=== PATIENT | male | born 1975 | race Caucasian/White ===

== ENCOUNTER 2016-08-17 08:16 | Emergency (ER) | payer OTHER ==
[2016-08-17] MEDS ORDERED: ASPIRIN CHEW 81 MG TABLET PO STA (08:46)
[2016-08-17] MEDS ORDERED: ASPIRIN CHEW 81 MG TABLET ONE (08:52)
[2016-08-17] MEDS ORDERED: diazePAM 5 MG TABLET PO STA (09:53)
[2016-08-17] MEDS ORDERED: diazePAM 5 MG TABLET PO ONE (09:53)
[2016-08-17] MEDS ORDERED: oxyCOD/ACETAMIN 5 MG/325 MG TABLET PO STA (11:11)
[2016-08-17] MEDS ORDERED: oxyCOD/ACETAMIN 5 MG/325 MG TABLET PO ONE (11:14)
== END 2016-08-17 13:26 | disposition home or self-care (01) ==
DX: F41.9 Anxiety disorder, unspecified (principal); R07.89 Other chest pain; R00.0 Tachycardia, unspecified; F43.10 Post-traumatic stress disorder, unspecified; Z87.891 Personal history of nicotine dependence
CPT/HCPCS: 36415; 71020; 80053; 83690; 83880; 84484; 85025; 85379; 93005; 93010; 99284; A9270

== ENCOUNTER 2016-10-04 09:35 | Emergency (ER) | payer BC, OTHER ==
[2016-10-04] MEDS ORDERED: CYCLOBENZAPRINE 10 MG TABLET PO STA (10:18)
[2016-10-04] MEDS ORDERED: LIDOCAINE PATCH 5% TOP STA (10:18)
[2016-10-04] MEDS ORDERED: KETOROLAC 60 MG/2 ML VIAL IM STA (10:18)
[2016-10-04] MEDS ORDERED: oxyCOD/ACETAMIN 5 MG/325 MG TABLET PO STA (10:18)
[2016-10-04] MEDS ORDERED: oxyCOD/ACETAMIN 5 MG/325 MG TABLET PO ONE (10:24)
[2016-10-04] MEDS ORDERED: KETOROLAC 60 MG/2 ML VIAL ONE (10:24)
[2016-10-04] MEDS ORDERED: CYCLOBENZAPRINE 10 MG TABLET PO ONE (10:24)
[2016-10-04] MEDS ORDERED: LIDOCAINE PATCH 5% TOP ONE (10:24)
== END 2016-10-04 11:45 | disposition home or self-care (01) ==
DX: M54.5 Low back pain (principal); K21.9 Gastro-esophageal reflux disease without esophagitis; Z87.891 Personal history of nicotine dependence
CPT/HCPCS: 96372; 99283; A9270

== ENCOUNTER 2017-01-25 15:40 | Outpatient (CLI) | payer BC | END 2017-01-25 15:41 | disposition critical access hospital (66) | LOC: EMS 15:40 | PROVIDERS: ATTEND Surgery | DX: R07.9 Chest pain, unspecified (principal); R11.2 Nausea with vomiting, unspecified; R19.7 Diarrhea, unspecified | CPT/HCPCS: A0425; A0427 ==

== ENCOUNTER 2017-01-25 15:56 | Emergency (ER) | payer BC ==
[2017-01-25] MEDS ORDERED: ONDANSETRON 4 MG/2 ML VIAL IVP STA (16:12)
[2017-01-25] MEDS ORDERED: HYDROmorphone 1 MG/ML SYRINGE IVP STA ×2 (16:12→19:06)
[2017-01-25] MEDS ORDERED: SODIUM CHLORIDE 0.9% 1,000 ML IV ONE ×2 (16:12→17:40)
[2017-01-25] MEDS ORDERED: ONDANSETRON 4 MG/2 ML VIAL ONE (16:21)
[2017-01-25] MEDS ORDERED: HYDROmorphone 1 MG/ML SYRINGE ONE ×2 (16:21→19:13)
--- NOTE | 2017-01-25 16:23 | ED Physician Documentation ---
History of Present Illness - Stated complaint Stated Complaint: CP - Chief complaint Chief Complaint: Cardiac - History obtained from History obtained from: Patient - Additonal information Additional information: Patient is a 41-year-old man who for the most part is pretty healthy. He presents with a complaint of nausea vomiting and diarrhea which started on Saturday. Initially he had a lot of nausea and vomiting but more lately is been mostly diarrhea. Most of his symptoms started to resolve however this morning when he stood up he felt lightheaded and then developed the palpitations. He felt his heart was beating very hard and became concerned. He was tried hydrated at home but had a recurrence of the dizziness and palpitations this evening and decided to come into the hospital for evaluation. This patient has chronic low back pain is on oxycodone every day. He has been able to take some of his medications but may have missed a few doses because of the nausea and vomiting initially. He has not had any abdominal pain however has had generalized cramping. There is no complaints of fever. There is no shortness of breath. He denies any headache or ear nose and throat symptoms. There is no recent antibiotic use or contact with healthcare system recently. Review of systems: For pertinent positive and negatives in the review of systems please see the history of present illness, otherwise all other systems have been reviewed and are negative. Dragon disclaimer: Parts of this medical record were created using voice recognition technology. Because of the inherent limitations of this system, occasional same sounding word substitutions do occur and persist despite proofreading. Please read the document for context. Review of Systems Ten Systems: 10 systems reviewed and negative Constitutional: denies: Fever, Chills Respiratory: denies: Dyspnea, Cough GI: reports: Nausea, Vomiting, Diarrhea. denies: Abdominal Pain, Abdominal Swelling, Constipation, Hematemesis : denies: Dysuria Musculoskeletal: denies: Neck pain, Back pain, Extremity pain Neurologic: reports: Generalized weakness. denies: Focal weakness, Numbness, Near syncope, Syncope, Seizure, Confused, Altered mental status PD PAST MEDICAL HISTORY - Past Medical History Cardiovascular: None Respiratory: None Neuro: None Endocrine/Autoimmune: None GI: GERD : None HEENT: None Psych: Depression, Anxiety, Post traumatic stress disorder Musculoskeletal: None, Chronic back pain Derm: None - Past Surgical History Past Surgical History: Yes Ortho: Other - Present Medications Home Medications: Ambulatory Orders Medication Instructions Recorded Confirmed Omeprazole [PriLOSEC] 20 mg PO DAILY 01/25/17 01/25/17 oxyCODONE/ACET 5/325 [Percocet 5 1 tab PO QID PRN 01/25/17 01/25/17 mg/325 mg] - Allergies Allergies/Adverse Reactions: Allergies Allergy/AdvReac Type Severity Reaction Status Date / Time No Known Drug Allergies Allergy Unverified 10/04/16 09:41 - Social History Does the pt smoke?: Yes Smoking Status: Former smoker Does the pt drink ETOH?: No Does the pt have substance abuse?: No - Immunizations Immunizations are current?: Yes - POLST Patient has POLST: No PD ED PE NORMAL - Vitals Vital signs reviewed: Yes - General General: Alert and oriented X 3, No acute distress, Other (This male lying in the bed. He is mildly tachycardic. He appears mildly anxious as well. He does not appear sick or in any type of distress) - Cardiac Cardiac: No murmur, No gallop, No rub, Other (Mild tachycardia) - Respiratory Respiratory: No respiratory distress, Clear bilaterally - Abdomen Abdomen: Normal bowel sounds, Non tender, Non distended - Derm Derm: Normal color - Extremities Extremities: No deformity, No tenderness to palpate, Normal ROM s pain, No edema - Neuro Neuro: Alert and oriented X 3, No motor deficit - Psych Psych: Normal mood, Normal affect Results - Vitals Vitals: Vital Signs - 24 hr 01/25/17 01/25/17 01/25/17 15:57 17:11 18:18 Temperature 37.0 C Heart Rate 118 H 98 105 H Respiratory 20 18 16 Rate Blood Pressure 164/61 H 139/98 H 124/75 O2 Saturation 99 96 96 01/25/17 19:17 Temperature Heart Rate 96 Respiratory 20 Rate Blood Pressure 137/82 H O2 Saturation 99 Oxygen O2 Source Room air - Labs Labs: Laboratory Tests 01/25/17 01/25/17 01/25/17 16:25 16:25 16:25 WBC 15.2 H RBC 5.34 Hgb 15.1 Hct 44.6 MCV 83.6 MCH 28.2 MCHC 33.8 RDW 13.6 Plt Count 313 MPV 7.9 Neut # 10.9 H Lymph # 2.9 [place] # 1.3 H Eos # 0.1 Baso # 0.1 Absolute Nucleated RBC 0.02 Nucleated RBCs 0.1 Sodium 132 L Potassium 3.7 Chloride 97 L Carbon Dioxide 20 L Anion Gap 15.0 H BUN 10 Creatinine 1.0 Estimated GFR (MDRD) 83 L Glucose 105 H Calcium 8.0 L Total Bilirubin 0.8 AST 36 ALT 41 Alkaline Phosphatase 54 Troponin I < 0.04 Total Protein 6.9 Albumin 4.1 Globulin 2.8 Albumin/Globulin Ratio 1.5 Lipase < 10 L Urine Color Urine Clarity Urine pH Ur Specific [place] Urine Protein Urine Glucose (UA) Urine Ketones Urine Occult Blood Urine Nitrite Urine Bilirubin Urine Urobilinogen Ur Leukocyte Esterase Ur Microscopic Review Urine Culture Comments 01/25/17 17:02 WBC RBC Hgb Hct MCV MCH MCHC RDW Plt Count MPV Neut # Lymph # [place] # Eos # Baso # Absolute Nucleated RBC Nucleated RBCs Sodium Potassium Chloride Carbon Dioxide Anion Gap BUN Creatinine Estimated GFR (MDRD) Glucose Calcium Total Bilirubin AST ALT Alkaline Phosphatase Troponin I Total Protein Albumin Globulin Albumin/Globulin Ratio Lipase Urine Color YELLOW Urine Clarity CLEAR Urine pH 5.5 Ur Specific [place] >=1.030 H Urine Protein NEGATIVE Urine Glucose (UA) NEGATIVE Urine Ketones NEGATIVE Urine Occult Blood NEGATIVE Urine Nitrite NEGATIVE Urine Bilirubin NEGATIVE Urine Urobilinogen 0.2 (NORMAL) Ur Leukocyte Esterase NEGATIVE Ur Microscopic Review NOT INDICATED Urine Culture Comments NOT INDICATED PD MEDICAL DECISION MAKING - ED course Complexity details: reviewed old records, reviewed results, re-evaluated patient , considered differential, d/w patient ED course: Patient is a 41-year-old man with history of chronic low back pain on oxycodone who presents with nausea vomiting diarrhea for couple days culminating with the onset of positional or orthostatic tachycardia and dizziness today. On initial presentation he was mildly tachycardic. He looked clinically dry. The history suggests dehydration as well. We did perform an EKG. This EKG demonstrates sinus tachycardia at 118 bpm the NE, QRS and QT intervals are within normal limits. Isolated T inversion is seen in lead III which is allowed. There is no ST segment elevation, depression present. The patient was given 2 L of normal saline here and there is been interval resolution of his tachycardia. Blood work on this patient demonstrates a white count of 15,000 and urine suggests dehydration with specific gravity greater than 1.030. The patient is doing well clinically suspect his symptoms are probably related to a viral gastroenteritis possibly superimposed on mild opiate withdrawal given his chronic opiate use and inability to take his medications during the nausea and vomiting episode. At this point in time he looks much better despite the high white count I do not suspect any type of bacterial infection. His abdomen is completely soft and nontender. At this point I think he can be safely discharged home. Disposition: To home Clinical impression: 1. Nausea vomiting diarrhea-suspect viral cause 2. Dehydration with high specific gravity of urine 3. Palpitations and tachycardia secondary to volume depletion Departure - Departure Disposition: 01 Home, Self Care Clinical Impression: Gastroenteritis and colitis, viral Condition: Good Instructions: ED Dehydration, ED Gastroenteritis Non Infec Follow-Up: your,physician [Other]
[2017-01-25 16:49] LABS: ALBUMIN/GLOBULIN RATIO 1.5 (1.0-2.2); BILIRUBIN,TOTAL 0.8 mg/dL (0.2-1.0); BUN - BLOOD UREA NITROGEN 10 mg/dL (6-20); CARBON DIOXIDE - CO2 20 mmol/L (21-32); CHLORIDE 97 mmol/L (101-111); GFR - MDRD 83 (>89); GLUCOSE 105 mg/dL (70-100); POTASSIUM 3.7 mmol/L (3.5-5.0); SODIUM 132 mmol/L (135-145); TOTAL PROTEIN 6.9 g/dL (6.7-8.2)
[2017-01-25 16:57] LABS: BASOPHILS # (AUTO) 0.1 10^3/uL (0.0-0.1); BASOPHILS % (AUTO) 0.5 %; EOSINOPHILS # (AUTO) 0.1 10^3/uL (0.0-0.7); EOSINOPHILS % (AUTO) 0.4 %; HCT - HEMATOCRIT 44.6 % (42.0-52.0); HGB - HEMOGLOBIN 15.1 g/dL (14.0-18.0); LYMPHOCYTES # (AUTO) 2.9 10^3/uL (1.5-3.5); MEAN CORPUSCULAR HEMOGLOBIN 28.2 pg (27.0-31.0); MEAN CORPUSCULAR HGB CONC 33.8 g/dL (32.0-36.0); MEAN CORPUSCULAR VOLUME 83.6 fL (80.0-94.0); MEAN PLATELET VOLUME 7.9 fL (7.4-11.4); MONOCYTES # (AUTO) 1.3 10^3/uL (0.0-1.0); MONOCYTES % (AUTO) 8.3 %; NEUTROPHILS # (AUTO) 10.9 10^3/uL (1.5-6.6); NEUTROPHILS % (AUTO) 71.8 %; NUCLEATED RED BLOOD CELLS AUTO 0.1 /100WBC; RED BLOOD COUNT 5.34 10^6/uL (4.70-6.10); RED CELL DISTRIBUTION WIDTH 13.6 % (12.0-15.0); UNCORRECTED WHITE BLOOD COUNT 15.2 x10^3/uL; WHITE BLOOD COUNT 15.2 x10^3/uL (4.8-10.8)
[2017-01-25 16:59] LABS: LIPASE < 10 U/L (22-51)
[2017-01-25 17:27] LABS: BILIRUBIN,URINE NEGATIVE (NEGATIVE); PH,URINE 5.5 PH (5.0-7.5)
[2017-01-25 17:29] LABS: UA CHARGE (STRIP ONLY) YES; UR CULTURE IF IND NOT INDICATED
[2017-01-25] MEDS ORDERED: LORazepam 2 MG/ML SYRINGE IVP STA (17:41)
[2017-01-25] MEDS ORDERED: LORazepam 2 MG/ML SYRINGE ONE (17:45)
[2017-01-25 19:28] VITALS: BP 135/82
== END 2017-01-25 19:59 | disposition home or self-care (01) ==
LOC: EDUNIT# → ED 15:56
DX: R11.2 Nausea with vomiting, unspecified (principal); R19.7 Diarrhea, unspecified; E86.0 Dehydration; R00.2 Palpitations; R00.0 Tachycardia, unspecified; G89.29 Other chronic pain; Z87.891 Personal history of nicotine dependence
CPT/HCPCS: 36415; 80053; 81003; 83690; 84484; 85025; 93005; 96361; 96374; 96375; 96376; 99284; 99285; J1170; J2060; 81001; 87086

== ENCOUNTER 2017-01-26 15:12 | Emergency (ER) | payer BC ==
[2017-01-26] MEDS ORDERED: SODIUM CHLORIDE 0.9% 1,000 ML IV ONE (15:30)
[2017-01-26] MEDS ORDERED: PROCHLORPERAZINE INJ 10 MG in SODIUM CHLORIDE 0.9% 50 ML IV ONE (15:50)
[2017-01-26 15:55] LABS: BASOPHILS # (AUTO) 0.1 10^3/uL (0.0-0.1); BASOPHILS % (AUTO) 0.9 %; EOSINOPHILS # (AUTO) 0.1 10^3/uL (0.0-0.7); EOSINOPHILS % (AUTO) 1.3 %; HCT - HEMATOCRIT 43.9 % (42.0-52.0); HGB - HEMOGLOBIN 14.8 g/dL (14.0-18.0); LYMPHOCYTES # (AUTO) 2.2 10^3/uL (1.5-3.5); LYMPHOCYTES % (AUTO) 25.5 %; MEAN CORPUSCULAR HEMOGLOBIN 28.2 pg (27.0-31.0); MEAN CORPUSCULAR HGB CONC 33.8 g/dL (32.0-36.0); MEAN CORPUSCULAR VOLUME 83.3 fL (80.0-94.0); MEAN PLATELET VOLUME 7.6 fL (7.4-11.4); MONOCYTES # (AUTO) 0.7 10^3/uL (0.0-1.0); MONOCYTES % (AUTO) 7.5 %; NEUTROPHILS # (AUTO) 5.7 10^3/uL (1.5-6.6); NEUTROPHILS % (AUTO) 64.8 %; NUCLEATED RED BLOOD CELLS AUTO 0.1 /100WBC; RED BLOOD COUNT 5.27 10^6/uL (4.70-6.10); RED CELL DISTRIBUTION WIDTH 13.7 % (12.0-15.0); UNCORRECTED WHITE BLOOD COUNT 8.8 x10^3/uL; WHITE BLOOD COUNT 8.8 x10^3/uL (4.8-10.8)
[2017-01-26] MEDS ORDERED: PROCHLORPERAZINE 10 MG/2 ML VIAL ONE (16:01)
[2017-01-26 16:09] LABS: ALBUMIN/GLOBULIN RATIO 1.2 (1.0-2.2); BILIRUBIN,TOTAL 0.9 mg/dL (0.2-1.0); BUN - BLOOD UREA NITROGEN 7 mg/dL (6-20); CARBON DIOXIDE - CO2 24 mmol/L (21-32); CHLORIDE 99 mmol/L (101-111); CREATININE 0.8 mg/dL (0.6-1.2); GFR - MDRD 107 (>89); GLUCOSE 119 mg/dL (70-100); LIPASE 13 U/L (22-51); POTASSIUM 3.9 mmol/L (3.5-5.0); SODIUM 134 mmol/L (135-145); TOTAL PROTEIN 7.6 g/dL (6.7-8.2)
[2017-01-26] MEDS ORDERED: FAMOTIDINE 20 MG in SODIUM CHLORIDE 0.9% 50 ML IV STA (16:45)
[2017-01-26] MEDS ORDERED: HYDROmorphone 1 MG/ML SYRINGE IVP STA (16:46)
[2017-01-26] MEDS ORDERED: FAMOTIDINE 20 MG/50 ML 50 ML IV STA (16:48)
[2017-01-26] MEDS ORDERED: FAMOTIDINE 20 MG/50 ML 50 ML IV ONE (17:02)
[2017-01-26] MEDS ORDERED: HYDROmorphone 1 MG/ML SYRINGE ONE (17:02)
[2017-01-26 17:07] LABS: BILIRUBIN,URINE NEGATIVE (NEGATIVE)
[2017-01-26 17:08] LABS: UA CHARGE (STRIP ONLY) YES; UR CULTURE IF IND NOT INDICATED
[2017-01-26 17:46] VITALS: BP 113/85
--- NOTE | 2017-01-26 18:03 | ED Physician Documentation ---
PD HPI ABD PAIN - Stated complaint Stated Complaint: VOMITING - Chief complaint Chief Complaint: Abd Pain - Treatment prior to arrival Treatment prior to arrival: Patient is a 41-year-old male with history of alcoholism in remission, peptic ulcer disease, and chronic low back pain on chronic opiate therapy. He presents with a complaint of nausea and vomiting diarrhea for the past couple of days. The patient was brought in by EMS was noted to be in mild distress with tachycardia and initial presentation. Patient had a workup yesterday that is essentially unremarkable. He improved with a couple liters of normal saline is no longer having nausea vomiting or diarrhea. It a white count of 15,000 but there is no other evidence suggesting infectious or bacterial enteritis. He ultimately went home and did well until last night when he developed more nausea vomiting and diarrhea. He thinks the nausea vomiting is getting better but the diarrhea is continuing. He denies any fever and is no significant or localized abdominal pain. Review of systems: For pertinent positive and negatives in the review of systems please see the history of present illness, otherwise all other systems have been reviewed and are negative. Dragbrendan disclaimer: Parts of this medical record were created using voice recognition technology. Because of the inherent limitations of this system, occasional same sounding word substitutions do occur and persist despite proofreading. Please read the document for context. Review of Systems Constitutional: denies: Fever GI: reports: Abdominal Pain, Nausea, Vomiting, Diarrhea. denies: Abdominal Swelling, Constipation, Hematemesis, Bloody / black stool : denies: Dysuria PD PAST MEDICAL HISTORY - Past Medical History Cardiovascular: None Respiratory: None Neuro: None Endocrine/Autoimmune: None GI: GERD : None HEENT: None Psych: Depression, Anxiety, Post traumatic stress disorder Musculoskeletal: None, Chronic back pain Derm: None - Past Surgical History Past Surgical History: Yes Ortho: Other - Present Medications Home Medications: Ambulatory Orders Medication Instructions Recorded Confirmed Omeprazole [PriLOSEC] 20 mg PO DAILY 01/25/17 01/26/17 oxyCODONE/ACET 5/325 [Percocet 5 1 tab PO QID PRN 01/25/17 01/26/17 mg/325 mg] Promethazine Supp [Phenergan Supp] 25 mg VA TID PRN #12 supp 01/26/17 Sucralfate [Carafate] 1 gm PO TID #21 ml 01/26/17 - Allergies Allergies/Adverse Reactions: Allergies Allergy/AdvReac Type Severity Reaction Status Date / Time No Known Drug Allergies Allergy Verified 01/26/17 15:21 - Social History Does the pt smoke?: Yes Smoking Status: Former smoker Does the pt drink ETOH?: No Does the pt have substance abuse?: No - Immunizations Immunizations are current?: Yes - POLST Patient has POLST: No PD ED PE NORMAL - General General: Alert and oriented X 3, No acute distress, Well developed/nourished - HEENT HEENT: Atraumatic, PERRL - Neck Neck: No bony TTP, No adenopathy - Cardiac Cardiac: RRR - Respiratory Respiratory: No respiratory distress - Abdomen Abdomen: Normal bowel sounds, No organomegaly, Other - Derm Derm: Normal color, Warm and dry - Extremities Extremities: No deformity, No tenderness to palpate - Neuro Neuro: Alert and oriented X 3 (The most part soft nontender abdomen. Bowel tones normoactive. No evidence of abdominal wall hernias) Results - Vitals Vitals: Vital Signs - 24 hr 01/26/17 01/26/17 15:16 17:45 Temperature 36.6 C Heart Rate 120 H 95 Respiratory 18 20 Rate Blood Pressure 183/153 H 113/85 H O2 Saturation 98 97 Oxygen O2 Source Room air - Labs Labs: Laboratory Tests 01/26/17 01/26/17 01/26/17 15:48 15:48 15:48 WBC 8.8 RBC 5.27 Hgb 14.8 Hct 43.9 MCV 83.3 MCH 28.2 MCHC 33.8 RDW 13.7 Plt Count 281 MPV 7.6 Neut # 5.7 Lymph # 2.2 [place] # 0.7 Eos # 0.1 Baso # 0.1 Absolute Nucleated RBC 0.00 Nucleated RBCs 0.1 Sodium 134 L Potassium 3.9 Chloride 99 L Carbon Dioxide 24 Anion Gap 11.0 BUN 7 Creatinine 0.8 Estimated GFR (MDRD) 107 Glucose 119 H Calcium 9.0 Total Bilirubin 0.9 AST 30 ALT 39 Alkaline Phosphatase 70 Troponin I < 0.04 Total Protein 7.6 Albumin 4.2 Globulin 3.4 Albumin/Globulin Ratio 1.2 Lipase 13 L Urine Color Urine Clarity Urine pH Ur Specific [place] Urine Protein Urine Glucose (UA) Urine Ketones Urine Occult Blood Urine Nitrite Urine Bilirubin Urine Urobilinogen Ur Leukocyte Esterase Ur Microscopic Review Urine Culture Comments Ethyl Alcohol < 5.0 01/26/17 17:00 WBC RBC Hgb Hct MCV MCH MCHC RDW Plt Count MPV Neut # Lymph # [place] # Eos # Baso # Absolute Nucleated RBC Nucleated RBCs Sodium Potassium Chloride Carbon Dioxide Anion Gap BUN Creatinine Estimated GFR (MDRD) Glucose Calcium Total Bilirubin AST ALT Alkaline Phosphatase Troponin I Total Protein Albumin Globulin Albumin/Globulin Ratio Lipase Urine Color YELLOW Urine Clarity CLEAR Urine pH 6.0 Ur Specific [place] <=1.005 Urine Protein NEGATIVE Urine Glucose (UA) NEGATIVE Urine Ketones NEGATIVE Urine Occult Blood NEGATIVE Urine Nitrite NEGATIVE Urine Bilirubin NEGATIVE Urine Urobilinogen 0.2 (NORMAL) Ur Leukocyte Esterase NEGATIVE Ur Microscopic Review NOT INDICATED Urine Culture Comments NOT INDICATED Ethyl Alcohol PD MEDICAL DECISION MAKING - ED course ED course: Patient is a pleasant 41-year-old man with a history of chronic opiate use for back pain. He was seen yesterday for nausea vomiting diarrhea that I think was exacerbated by early opiate withdrawal since he is unable to take his chronic pain medications. He is given IV fluids and pain medications and looked and felt better went home and did well and then had recurrence of nausea and vomiting and diarrhea. Here on examination he actually looks better today than he did yesterday. He is not significantly tachycardic and initial presentation. He looks well-hydrated and had a fairly benign abdominal examination. Again he is given IV fluids, Pepcid, small amount of pain medication and antiemetics. Today the patient's blood work is unremarkable. Though elevated white blood cell count seen yesterday has normalized. There is no evidence of dehydration. Transaminases renal function are all normal. Patient's abdomen remains soft and nontender I see no need for imaging. The patient is doing better I will add Carafate to his Pepcid at home and will prescribe some perirectal Phenergan. He is discharged home at this time in improved condition Disposition: To home Clinical impression: 1. Nausea vomiting and diarrhea Departure - Departure Disposition: 01 Home, Self Care Clinical Impression: Nausea & vomiting Qualifiers: Vomiting type: unspecified Vomiting Intractability: non-intractable Qualified Code(s): R11.2 - Nausea with vomiting, unspecified Condition: Good Instructions: ED Nausea Vomiting Follow-Up: your,physician [Other] Prescriptions: Sucralfate [Carafate] 1 gm PO TID #21 ml Promethazine Supp [Phenergan Supp] 25 mg VA TID PRN #12 supp PRN Reason: Nausea / Vomiting Discharge Date/Time: 01/26/17 17:57
== END 2017-01-26 17:57 | disposition home or self-care (01) ==
LOC: ED 15:12
DX: R11.2 Nausea with vomiting, unspecified (principal); R19.7 Diarrhea, unspecified; K21.9 Gastro-esophageal reflux disease without esophagitis; M54.5 Low back pain; G89.29 Other chronic pain; Z87.11 Personal history of peptic ulcer disease; Z87.891 Personal history of nicotine dependence; R00.0 Tachycardia, unspecified
CPT/HCPCS: 36415; 80053; 80320; 81003; 83690; 84484; 85025; 93005; 96365; 96367; 96375; 99283; 99284; J1170; J7040; 81001; 87086

== ENCOUNTER 2017-02-11 18:52 | Emergency (ER) | payer BC ==
[2017-02-11] MEDS ORDERED: CYCLOBENZAPRINE 10 MG TABLET PO STA (20:34)
[2017-02-11] MEDS ORDERED: oxyCOD/ACETAMIN 5 MG/325 MG TABLET PO STA (20:34)
--- NOTE | 2017-02-11 20:37 | ED Physician Documentation ---
PD HPI BACK PAIN - Stated complaint Stated Complaint: BACK PAIN - Chief complaint Chief Complaint: Back Pain - History obtained from History obtained from: Patient - History of Present Illness Timing - onset: Today Timing - duration: Days (1) Timing - details: Gradual onset Pain level max: 9 Pain level now: 9 Location: Lower, Right, Left Quality: Pain, Spasm, Similar to prior episodes Associated symptoms: No: Fever, Weakness, Numbness, Incontinent of urine, Unable to urinate, Hematuria, Incontinent of stool Improves with: Rest Worsened by: Movement Contributing factors: Out of meds (percocet) Similar symptoms before: Diagnosis (chronic back pain) Recently seen: Clinic (normally sees his PCP, but out of his percocet that he normally has and she is on vacation.) - Additional information Additional information: Patient has chronic back pain, but reinjured his back today 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 Did not hurt initially, but has gradually tightened up throughout the day. Review of Systems Constitutional: denies: Fever, Chills Nose: denies: Rhinorrhea / runny nose, Congestion GI: denies: Abdominal Pain, Nausea, Vomiting, Diarrhea : denies: Dysuria, Frequency, Hesitancy, Unable to Void, Incontinent Skin: denies: Rash Musculoskeletal: denies: Neck pain Neurologic: denies: Focal weakness, Numbness, Headache PD PAST MEDICAL HISTORY - Past Medical History Past Medical History: Yes Cardiovascular: None Respiratory: None Neuro: None Endocrine/Autoimmune: None GI: GERD : None HEENT: None Psych: Depression, Anxiety, Post traumatic stress disorder Musculoskeletal: None, Chronic back pain Derm: None - Past Surgical History Past Surgical History: Yes Ortho: Other - Present Medications Home Medications: Ambulatory Orders Medication Instructions Recorded Confirmed Omeprazole [PriLOSEC] 20 mg PO DAILY 01/25/17 02/11/17 oxyCODONE/ACET 5/325 [Percocet 5 1 tab PO QID PRN 01/25/17 02/11/17 mg/325 mg] Cyclobenzaprine [Flexeril] 10 mg PO TID PRN #20 tablet 02/11/17 Oxycodone HCl/Acetaminophen 1 - 2 each PO Q6H PRN #14 tablet 02/11/17 [Percocet 5-325 mg Tablet] - Allergies Allergies/Adverse Reactions: Allergies Allergy/AdvReac Type Severity Reaction Status Date / Time No Known Drug Allergies Allergy Verified 02/11/17 18:56 - Social History Does the pt smoke?: Yes Smoking Status: Former smoker Does the pt drink ETOH?: No Does the pt have substance abuse?: No - Immunizations Immunizations are current?: Yes - POLST Patient has POLST: No PD ED PE NORMAL - Vitals Vital signs reviewed: Yes - General General: Alert and oriented X 3, No acute distress, Well developed/nourished - HEENT HEENT: PERRL, Moist mucous membranes - Neck Neck: Supple, no meningeal sign - Cardiac Cardiac: RRR, Strong equal pulses - Respiratory Respiratory: No respiratory distress, Clear bilaterally - Abdomen Abdomen: Soft, Non tender, Non distended - Back Back: No spinal TTP, Other (No midline tenderness to palpation or percussion. Paraspinal spasm present bilaterally low lumbar.) - Derm Derm: Warm and dry - Neuro Neuro: Alert and oriented X 3, No motor deficit, No sensory deficit - Psych Psych: Normal mood, Normal affect Results - Vitals Vitals: Vital Signs - 24 hr 02/11/17 02/11/17 18:53 21:24 Temperature 36 C L Heart Rate 90 83 Respiratory 20 18 Rate Blood Pressure 148/104 H 133/80 H O2 Saturation 98 97 Oxygen O2 Source Room air PD MEDICAL DECISION MAKING - ED course Complexity details: re-evaluated patient, considered differential (no cauda equina, no spinal epidural abscess, no fracture, no aortic dissection or evidence of aneursym rupture), d/w patient ED course: Patient is a 41-year-old male with acute on chronic back pain. Appears to be spasm. No midline tenderness to palpation or percussion. Does not use IV drugs. Given Percocet and Flexeril here. Pain improved and is ambulating well. We will continue supportive care and follow-up with his doctor. No evidence of cauda equina, epidural abscess or fracture. Patient counseled regarding signs and symptoms for which I believe and urgent re-evaluation would be necessary. Patient with good understanding of and agreement to plan and is comfortable going home at this time This document was made in part using voice recognition software. While efforts are made to proofread this document, sound alike and grammatical errors may occur. Departure - Departure Disposition: 01 Home, Self Care Clinical Impression: Back strain Qualifiers: Encounter type: initial encounter Qualified Code(s): S39.012A - Strain of muscle, fascia and tendon of lower back, initial encounter Condition: Good Instructions: ED Low Back Pain Injury Follow-Up: April Griggs PA-C [Primary Care Provider] - Within 1 week Prescriptions: Cyclobenzaprine [Flexeril] 10 mg PO TID PRN #20 tablet PRN Reason: Spasms Oxycodone HCl/Acetaminophen [Percocet 5-325 mg Tablet] 1 - 2 each PO Q6H PRN # 14 tablet PRN Reason: pain Comments: Return if you worsen. This should improve over the next few days. Follow-up with your doctor for further evaluation and care. Do not drink alcohol or drive while on narcotic pain medicine. Note that many narcotic pain relievers also contain tylenol/acetaminophen. Please ensure that your total dose of acetaminophen from all sources does not exceed 3 grams (3000mg) per day. You may constipated on this medication, take a stool softener such as "Colace" twice a day while you are on it. Also recommend a [id number] laxative such as senna or MiraLAX any day that you do not have a bowel movement. If you received narcotic pain medication in the emergency department, do not drive or operate machinery for the next 24 hours. Discharge Date/Time: 02/11/17 21:51
[2017-02-11] MEDS ORDERED: oxyCOD/ACETAMIN 5 MG/325 MG TABLET PO ONE (20:52)
[2017-02-11] MEDS ORDERED: CYCLOBENZAPRINE 10 MG TABLET PO ONE (20:53)
[2017-02-11 21:25] VITALS: BP 133/80
[2017-02-11] MEDS ORDERED: oxyCODONE/ACET 5/325 Prepack 4 PO STA (21:42)
[2017-02-11] MEDS ORDERED: oxyCODONE/ACET 5/325 Prepack 4 PO ONE (21:50)
== END 2017-02-11 21:51 | disposition home or self-care (01) ==
LOC: ED 18:52
DX: S39.012A Strain of muscle, fascia and tendon of lower back, initial encounter (principal); X50.0XXA Overexertion from strenuous movement or load, initial encounter; K21.9 Gastro-esophageal reflux disease without esophagitis; Z87.891 Personal history of nicotine dependence
CPT/HCPCS: 99283; A9270

== ENCOUNTER 2017-03-10 19:01 | Emergency (ER) | payer BC ==
--- NOTE | 2017-03-10 20:35 | ED Physician Documentation ---
PD HPI BACK INJURY - Stated complaint Stated Complaint: LOW BACK PX - History obtained from History obtained from: Patient PD PAST MEDICAL HISTORY - Past Medical History Past Medical History: Yes Cardiovascular: None Respiratory: None Neuro: None Endocrine/Autoimmune: None GI: GERD : None HEENT: None Psych: Depression, Anxiety, Post traumatic stress disorder Musculoskeletal: None, Chronic back pain Derm: None - Past Surgical History Past Surgical History: Yes Ortho: Other - Present Medications Home Medications: Ambulatory Orders Medication Instructions Recorded Confirmed Omeprazole [PriLOSEC] 20 mg PO DAILY 01/25/17 03/10/17 oxyCODONE/ACET 5/325 [Percocet 5 1 tab PO QID PRN 01/25/17 03/10/17 mg/325 mg] - Allergies Allergies/Adverse Reactions: Allergies Allergy/AdvReac Type Severity Reaction Status Date / Time No Known Drug Allergies Allergy Verified 03/10/17 19:12 - Social History Does the pt smoke?: Yes Smoking Status: Former smoker Does the pt drink ETOH?: No Does the pt have substance abuse?: No - Immunizations Immunizations are current?: Yes - POLST Patient has POLST: No Results - Vitals Vitals: Vital Signs - 24 hr 03/10/17 19:09 Temperature 35.9 C L Heart Rate 112 H Respiratory 16 Rate Blood Pressure 186/123 H O2 Saturation 100 Oxygen O2 Source Room air
[2017-03-10] MEDS ORDERED: KETOROLAC 60 MG/2 ML VIAL IM STA (20:51)
[2017-03-10] MEDS ORDERED: DEXAMETHASONE 10 MG/ML VIAL PO STA (20:51)
[2017-03-10] MEDS ORDERED: DEXAMETHASONE 10 MG/ML VIAL ONE (20:58)
[2017-03-10] MEDS ORDERED: KETOROLAC 60 MG/2 ML VIAL ONE (20:58)
--- NOTE | 2017-03-10 21:00 | ED Physician Documentation ---
PD HPI BACK PAIN - Stated complaint Stated Complaint: LOW BACK PX - Chief complaint Chief Complaint: Back Pain - History obtained from History obtained from: Patient - History of Present Illness Timing - onset: How many days ago (3) Timing - duration: Days (3) Timing - details: Gradual onset, Still present Location: Lower Quality: Pain, Spasm, Sharp, Similar to prior episodes Associated symptoms: No: Fever, Weakness, Numbness, Incontinent of urine, Unable to urinate, Hematuria, Incontinent of stool Improves with: Rest, Position, Meds Worsened by: Movement Contributing factors: Other (The patient has chronic L2 compression fracture with chronic back pain. He has recently been chopping wood and his pain is exacerbated.) Similar symptoms before: Diagnosis (back strain) Recently seen: Emergency Dept (last month with same) - Additional information Additional information: 41-year-old male with L2 compression fracture from experience has chronic back pain and he has recently been splitting some firewood and has exacerbated his pain. He is usually getting about 60 pills of oxycodone per month. He has run out of his pain medication. He is not on a pain contract or chronic pain management. He had this last prescription of pills for an exacerbation of his pain. Review of Systems Constitutional: denies: Fever Eyes: denies: Decreased vision Ears: denies: Ear pain Nose: denies: Congestion Throat: denies: Sore throat Cardiac: denies: Chest pain / pressure, Palpitations Respiratory: denies: Dyspnea, Cough GI: denies: Abdominal Pain, Nausea, Vomiting : denies: Dysuria, Frequency Skin: denies: Rash Musculoskeletal: reports: Back pain. denies: Neck pain Neurologic: denies: Generalized weakness, Focal weakness, Numbness PD PAST MEDICAL HISTORY - Past Medical History Past Medical History: Yes Cardiovascular: None Respiratory: None Neuro: None Endocrine/Autoimmune: None GI: GERD : None HEENT: None Psych: Depression, Anxiety, Post traumatic stress disorder Musculoskeletal: None, Chronic back pain Derm: None - Past Surgical History Past Surgical History: Yes Ortho: Other - Present Medications Home Medications: Ambulatory Orders Medication Instructions Recorded Confirmed Omeprazole [PriLOSEC] 20 mg PO DAILY 01/25/17 03/10/17 oxyCODONE/ACET 5/325 [Percocet 5 1 tab PO QID PRN 08/04/17 09/17/17 mg/325 mg] oxyCODONE/ACET 5/325 [Percocet 5 1 - 2 each PO Q6H PRN #15 tablet 03/10/17 mg/325 mg] tiZANidine [Zanaflex] 4 mg PO Q8H PRN #20 tablet 03/10/17 - Allergies Allergies/Adverse Reactions: Allergies Allergy/AdvReac Type Severity Reaction Status Date / Time No Known Drug Allergies Allergy Verified 03/10/17 19:12 - Social History Does the pt smoke?: Yes Smoking Status: Former smoker Does the pt drink ETOH?: No Does the pt have substance abuse?: No - Immunizations Immunizations are current?: Yes - POLST Patient has POLST: No PD ED PE NORMAL - Vitals Vital signs reviewed: Yes (Tachycardic and hypertensive) - General General: Well developed/nourished, Other (The patient does appear to be uncomfortable he is sitting stiffly and appears to have the facial expression of pain with flat affect and color expert tone.) - HEENT HEENT: Atraumatic, PERRL - Neck Neck: Supple, no meningeal sign - Respiratory Respiratory: No respiratory distress - Back Back: No CVA TTP, Other (There is muscle tightness and tenderness to the paraspinous muscles from L1-L5.) - Derm Derm: Normal color, Warm and dry, No rash - Extremities Extremities: No deformity, No edema - Neuro Neuro: Alert and oriented X 3, No motor deficit, No sensory deficit, Normal speech - Psych Psych: Normal mood Results - Vitals Vitals: Vital Signs - 24 hr 03/10/17 19:09 Temperature 35.9 C L Heart Rate 112 H Respiratory 16 Rate Blood Pressure 186/123 H O2 Saturation 100 Oxygen O2 Source Room air PD MEDICAL DECISION MAKING - ED course Complexity details: reviewed old records, considered differential, d/w patient ED course: 41-year-old male with chronic back pain has exacerbated his pain with physical activity. He appears to be in pain today and here in the emergency department he is administered dexamethasone 10 mg orally and we will send him home with some Percocet. He has taken Flexeril previously and this appears to make him irritable with his children. He has taken tizanidine which seems to work better. We will prescribe some tizanidine tonight as well. Departure - Departure Disposition: 01 Home, Self Care Clinical Impression: Back strain Qualifiers: Encounter type: initial encounter Qualified Code(s): S39.012A - Strain of muscle, fascia and tendon of lower back, initial encounter Condition: Stable Instructions: ED Spasm Back No Trauma Follow-Up: April Griggs PA-C [Primary Care Provider] - Prescriptions: oxyCODONE/ACET 5/325 [Percocet 5 mg/325 mg] 1 - 2 each PO Q6H PRN #15 tablet PRN Reason: Pain tiZANidine [Zanaflex] 4 mg PO Q8H PRN #20 tablet PRN Reason: Spasms
[2017-03-10] MEDS ORDERED: oxyCODONE/ACET 5/325 Prepack 4 PO STA (21:08)
[2017-03-10] MEDS ORDERED: oxyCODONE/ACET 5/325 Prepack 4 PO ONE (21:22)
[2017-03-10 21:25] VITALS: BP 136/102
== END 2017-03-10 21:33 | disposition home or self-care (01) ==
LOC: ED 19:01
DX: S39.012A Strain of muscle, fascia and tendon of lower back, initial encounter (principal); X50.9XXA Other and unspecified overexertion or strenuous movements or postures, initial encounter; Y93.89 Activity, other specified; Z87.891 Personal history of nicotine dependence
CPT/HCPCS: 96372; 99282; 99283

== ENCOUNTER 2017-07-09 17:48 | Emergency (ER) | payer BC ==
--- NOTE | 2017-07-09 19:01 | XRAY Preliminary Report ---
Exam: XR LUMBAR SPINE 2 VIEW IMPRESSION: 1. No acute bony abnormality. 2. Old wedging thoracolumbar junction with posttraumatic fusion at the L1-L2 level. [facility] SITE ID: [id number]
--- NOTE | 2017-07-09 19:07 | XRAY Report ---
EXAM: LUMBOSACRAL SPINE RADIOGRAPHY EXAM DATE: 07/09/2017 06:28 PM. CLINICAL HISTORY: Remote L1-L2 fusion. Low back pain following a recent fall. COMPARISONS: MRI lumbar spine 01/02/2016. TECHNIQUE: 2 views. FINDINGS: Alignment: Mild kyphosis centered at T12. Bones: Five [id number]-[id number] lumbar vertebral bodies are present. Old mild wedging T12, L1, and L2. Disks: Moderate degenerative disk disease T12-L1. Acquired fusion L1-L2. Moderate narrowing L5-S1. Facets: No degenerative changes. Sacroiliac Joints: Unremarkable. Soft Tissues: Normal. The visualized bowel gas pattern is normal. IMPRESSION: 1. No acute bony abnormality. 2. Old wedging thoracolumbar junction with spontaneous posttraumatic fusion at the L1-L2 level. [facility] Referring Provider Line: [phone] SITE ID: [id number]
[2017-07-09] MEDS ORDERED: CYCLOBENZAPRINE 10 MG TABLET PO STA (20:06)
[2017-07-09] MEDS ORDERED: HYDROmorphone 1 MG/ML SYRINGE IM STA (20:06)
--- NOTE | 2017-07-09 20:08 | ED Physician Documentation ---
PD HPI BACK INJURY - Stated complaint Stated Complaint: BACK PX - History obtained from History obtained from: Patient - History of Present Illness Location: Both, Lower Type of injury: Fall (yesterday. playing football with his son) Where injury occurred: Home Timing - onset: Yesterday Timing - duration: Days (1) Timing - details: Gradual onset Pain level max: 10 Pain level now: 10 Quality: Aching, Throbbing, Dull Improved by: Rest, Ice, Immobilization Worsened by: Moving, Palpating Associated symptoms: No: Fever, Weakness, Numbness, Incontinent of urine, Unable to urinate, Hematuria, Incontinent of stool Contributing factors: Prior back surgery (L spine fusion) Recently seen: Not recently seen Review of Systems Ten Systems: 10 systems reviewed and negative Constitutional: denies: Fever, Chills Nose: denies: Rhinorrhea / runny nose, Congestion Throat: denies: Sore throat Respiratory: denies: Cough GI: denies: Abdominal Pain, Nausea, Vomiting, Diarrhea : denies: Dysuria, Frequency, Hesitancy, Incontinent Skin: denies: Rash Musculoskeletal: denies: Neck pain Neurologic: denies: Focal weakness, Numbness PD PAST MEDICAL HISTORY - Past Medical History Past Medical History: Yes Cardiovascular: None Respiratory: None Neuro: None Endocrine/Autoimmune: None GI: GERD : None HEENT: None Psych: Depression, Anxiety, Post traumatic stress disorder Musculoskeletal: None, Chronic back pain Derm: None - Past Surgical History Past Surgical History: Yes Ortho: Other - Present Medications Home Medications: Ambulatory Orders Medication Instructions Recorded Confirmed Omeprazole [PriLOSEC] 20 mg PO DAILY 01/25/17 07/09/17 Cyclobenzaprine [Flexeril] 10 mg PO TID PRN #20 tablet 07/09/17 Meloxicam [Mobic] 15 mg PO DAILY PRN #20 tablet 07/09/17 Oxycodone HCl/Acetaminophen 1 - 2 each PO Q6H PRN #10 tablet 07/09/17 [Percocet 5-325 mg Tablet] - Allergies Allergies/Adverse Reactions: Allergies Allergy/AdvReac Type Severity Reaction Status Date / Time No Known Drug Allergies Allergy Verified 07/09/17 19:35 - Social History Does the pt smoke?: Yes Smoking Status: Current every day smoker Does the pt drink ETOH?: No Does the pt have substance abuse?: No - Immunizations Immunizations are current?: Yes - POLST Patient has POLST: No PD ED PE NORMAL - Vitals Vital signs reviewed: Yes - General General: Alert and oriented X 3, Well developed/nourished, Other (Appears very uncomfortable) - HEENT HEENT: PERRL, Moist mucous membranes - Neck Neck: Supple, no meningeal sign, No bony TTP - Cardiac Cardiac: RRR, Strong equal pulses - Respiratory Respiratory: No respiratory distress, Clear bilaterally - Abdomen Abdomen: Soft, Non tender, Non distended - Back Back: Other (Tender to palpation throughout the lumbar spine as well as paraspinal.) - Derm Derm: Warm and dry - Extremities Extremities: Normal ROM s pain, Other (normal bilateral lower extremity patellar and ankle jerk reflexes. Normal great toe extension bilaterally) - Neuro Neuro: Alert and oriented X 3, No motor deficit, No sensory deficit - Psych Psych: Normal mood, Normal affect Results - Vitals Vitals: Vital Signs - 24 hr 07/09/17 07/09/17 18:02 20:37 Temperature 37.0 C 36.7 C Heart Rate 134 H 129 H Respiratory 18 24 Rate Blood Pressure 152/116 H 135/115 H O2 Saturation 98 96 Oxygen O2 Source Room air - Rads (name of study) L spine xray Radiology: Prelim report reviewed, EMP read contemporaneously, See rad report ( No acute abnormality) PD MEDICAL DECISION MAKING - ED course Complexity details: reviewed old records, reviewed results, re-evaluated patient , considered differential (no cauda equina, no spinal epidural abscess, no fracture, no aortic dissection or evidence of aneursym rupture), d/w patient ED course: Patient is a 41-year-old male who presents to the emergency department with acute on chronic low back pain. Pain well controlled in the emergency department. Will place on pain medication and muscle relaxants for home. No evidence of acute fracture or cauda equina. Patient counseled regarding signs and symptoms for which I believe and urgent re-evaluation would be necessary. Patient with good understanding of and agreement to plan and is comfortable going home at this time This document was made in part using voice recognition software. While efforts are made to proofread this document, sound alike and grammatical errors may occur. Patient states that he is chronically tachycardic and does not want any further workup Departure - Departure Disposition: Home, Self Care Clinical Impression: Back strain Qualifiers: Encounter type: initial encounter Qualified Code(s): S39.012A - Strain of muscle, fascia and tendon of lower back, initial encounter Condition: Good Instructions: ED Sprain Strain Lumbar Follow-Up: April Griggs PA-C [Primary Care Provider] - Within 1 week Prescriptions: Cyclobenzaprine [Flexeril] 10 mg PO TID PRN #20 tablet PRN Reason: Spasms Meloxicam [Mobic] 15 mg PO DAILY PRN #20 tablet PRN Reason: pain Oxycodone HCl/Acetaminophen [Percocet 5-325 mg Tablet] 1 - 2 each PO Q6H PRN # 10 tablet PRN Reason: pain Comments: This should improve over the next few days. Return if you worsen. Do not drink alcohol or drive while on narcotic pain medicine. Note that many narcotic pain relievers also contain tylenol/acetaminophen. Please ensure that your total dose of acetaminophen from all sources does not exceed 3 grams (3000mg) per day. You may constipated on this medication, take a stool softener such as "Colace" twice a day while you are on it. Also recommend a sefz-gzg-jqnufwj laxative such as senna or MiraLAX any day that you do not have a bowel movement. If you received narcotic pain medication in the emergency department, do not drive or operate machinery for the next 24 hours. Discharge Date/Time: 07/09/17 20:37
[2017-07-09 20:38] VITALS: BP 135/115
== END 2017-07-09 20:37 | disposition home or self-care (01) ==
LOC: ED 17:48
DX: S39.012A Strain of muscle, fascia and tendon of lower back, initial encounter (principal); W19.XXXA Unspecified fall, initial encounter; Y93.61 Activity, american tackle football; Y92.009 Unspecified place in unspecified non-institutional (private) residence as the place of occurrence of the external cause; Z98.1 Arthrodesis status
CPT/HCPCS: 72100; 96372; 99283; A9270; J1170

== ENCOUNTER 2017-07-26 17:33 | Emergency (ER) | payer BC ==
[2017-07-26] MEDS ORDERED: SODIUM CHLORIDE 0.9% 1,000 ML IV ONE (18:23)
[2017-07-26 18:30] LABS: BILIRUBIN,URINE NEGATIVE (NEGATIVE); GLUCOSE, URINE (UA) NEGATIVE (NEGATIVE); KETONES,URINE (UA) NEGATIVE (NEGATIVE); LEUKOCYTE ESTERASE, URINE NEGATIVE (NEGATIVE); NITRITE,URINE NEGATIVE (NEGATIVE); OCCULT BLOOD,URINE TRACE-LYSE (NEGATIVE); PROTEIN,URINE NEGATIVE (NEGATIVE); UROBILINOGEN,URINE 0.2 (NORMAL) E.U./dL (NORMAL)
[2017-07-26 18:31] LABS: CLARITY,URINE CLEAR (CLEAR)
[2017-07-26 18:32] LABS: BASOPHILS # (AUTO) 0.1 10^3/uL (0.0-0.1); BASOPHILS % (AUTO) 0.6 %; EOSINOPHILS # (AUTO) 0.1 10^3/uL (0.0-0.7); EOSINOPHILS % (AUTO) 0.5 %; HGB - HEMOGLOBIN 15.2 g/dL (14.0-18.0); LYMPHOCYTES # (AUTO) 2.8 10^3/uL (1.5-3.5); LYMPHOCYTES % (AUTO) 21.4 %; MEAN CORPUSCULAR HGB CONC 32.4 g/dL (32.0-36.0); MEAN CORPUSCULAR VOLUME 83.4 fL (80.0-94.0); MEAN PLATELET VOLUME 8.3 fL (7.4-11.4); MONOCYTES % (AUTO) 7.8 %; NEUTROPHILS # (AUTO) 9.1 10^3/uL (1.5-6.6); NEUTROPHILS % (AUTO) 69.7 %; PLT - PLATELET COUNT 342 10^3/uL (130-450); RED CELL DISTRIBUTION WIDTH 13.9 % (12.0-15.0); WHITE BLOOD COUNT 13.1 x10^3/uL (4.8-10.8)
[2017-07-26 18:37] LABS: ALBUMIN 4.6 g/dL (3.2-5.5); ALBUMIN/GLOBULIN RATIO 1.2 (1.0-2.2); BILIRUBIN,TOTAL 0.6 mg/dL (0.2-1.0); CALCIUM 9.2 mg/dL (8.5-10.3); CREATININE 0.9 mg/dL (0.6-1.2); TOTAL PROTEIN 8.3 g/dL (6.7-8.2)
--- NOTE | 2017-07-26 18:40 | ED Physician Documentation ---
PD HPI ABD PAIN - Stated complaint Stated Complaint: BACK FLANK PX/NAUSEA - Chief complaint Chief Complaint: Back Pain - History obtained from History obtained from: Patient - History of Present Illness Timing - onset: Today Timing - duration: Hours Timing - details: Abrupt onset, Still present Quality: Aching, Sharp, Pain Location: RLQ Radiation: Right flank Improved by: No: Eating, Position Worsened by: No: Eating, Moving, Breathing, Position Associated symptoms: Nausea, Vomiting, Hematuria (dark colored). No: Fever, Diarrhea, Dysuria Similar symptoms before: Diagnosis (kidney stone back when he was about 26 years old.) Recently seen: Not recently seen Review of Systems Constitutional: denies: Fever, Chills Nose: denies: Rhinorrhea / runny nose, Congestion Throat: denies: Sore throat Respiratory: denies: Cough GI: reports: Abdominal Pain, Nausea, Vomiting. denies: Diarrhea : reports: Hematuria (tea colored). 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 - Past Surgical History Past Surgical History: Yes Ortho: Other - Present Medications Home Medications: Ambulatory Orders Medication Instructions Recorded Confirmed Omeprazole [PriLOSEC] 20 mg PO DAILY 01/25/17 07/09/17 Naproxen [Naprosyn] 500 mg PO BID PRN #20 tablet 07/26/17 Ondansetron Odt [Zofran] 4 mg TL Q6H PRN #15 tablet 07/26/17 Oxycodone HCl/Acetaminophen 1 each PO Q6H PRN #20 tablet 07/26/17 [Percocet 5-325 mg Tablet] Tamsulosin [Flomax] 0.4 mg PO DAILY #5 capsule 07/26/17 - Allergies Allergies/Adverse Reactions: Allergies Allergy/AdvReac Type Severity Reaction Status Date / Time No Known Drug Allergies Allergy Verified 07/27/17 07:53 - Social History Does the pt smoke?: No Smoking Status: Former smoker Does the pt drink ETOH?: No Does the pt have substance abuse?: No - Immunizations Immunizations are current?: Yes - POLST Patient has POLST: No PD ED PE NORMAL - Vitals Vital signs reviewed: Yes - General General: Alert and oriented X 3, Well developed/nourished, Other (appears in pain) - Neck Neck: Supple, no meningeal sign, No adenopathy - Cardiac Cardiac: RRR, No murmur - Respiratory Respiratory: Clear bilaterally - Abdomen Abdomen: Normal bowel sounds, Soft, Non distended, No organomegaly, Other ( tender right lower without guarding. Right CVA tender to percussion. ) - Male Male : Deferred - Rectal Rectal: Deferred - Back Back: No spinal TTP - Derm Derm: Normal color, Warm and dry, No rash - Extremities Extremities: No deformity, No tenderness to palpate, Normal ROM s pain - Neuro Neuro: Alert and oriented X 3, No motor deficit, Normal speech Results - Vitals Vitals: Oxygen O2 Source Room air - Labs Labs: Laboratory Tests 07/26/17 07/26/17 07/26/17 18:09 18:09 18:09 WBC 13.1 H RBC 5.60 Hgb 15.2 Hct 46.7 MCV 83.4 MCH 27.0 MCHC 32.4 RDW 13.9 Plt Count 342 MPV 8.3 Neut # 9.1 H Lymph # 2.8 [place] # 1.0 Eos # 0.1 Baso # 0.1 Absolute Nucleated RBC 0.00 Nucleated RBC % 0.0 Sodium 136 Potassium 3.6 Chloride 101 Carbon Dioxide 22 Anion Gap 13.0 BUN 13 Creatinine 0.9 Estimated GFR (MDRD) 93 Glucose 106 H Calcium 9.2 Total Bilirubin 0.6 AST 24 ALT 32 Alkaline Phosphatase 50 Total Protein 8.3 H Albumin 4.6 Globulin 3.7 Albumin/Globulin Ratio 1.2 Lipase 18 L Urine Color YELLOW Urine Clarity CLEAR Urine pH 6.0 Ur Specific [place] <=1.005 Urine Protein NEGATIVE Urine Glucose (UA) NEGATIVE Urine Ketones NEGATIVE Urine Occult Blood TRACE-LYSE Urine Nitrite NEGATIVE Urine Bilirubin NEGATIVE Urine Urobilinogen 0.2 (NORMAL) Ur Leukocyte Esterase NEGATIVE Ur Microscopic Review NOT INDICATED Urine Culture Comments NOT INDICATED - Rads (name of study) KUB CT Radiology: Prelim report reviewed (3 mm ureteral stone distal ureter with mild obstruction. No other acute findings. ), EMP read contemporaneously PD MEDICAL DECISION MAKING - ED course Complexity details: reviewed results, considered differential (small stone at 3 mm with mild hydro but hurting him a lot, given IV meds of toradol, lidocaine, dilaudid, decadron. His pain is improved to comfortable enough level for him to go home. ), d/w patient Departure - Departure Disposition: 01 Home, Self Care Clinical Impression: Right sided abdominal pain, Ureterolithiasis Condition: Stable Record reviewed to determine appropriate education?: Yes Instructions: ED Stone Renal W Colic Follow-Up: April Griggs PA-C [Primary Care Provider] - [facility] [Provider Group] Prescriptions: Naproxen [Naprosyn] 500 mg PO BID PRN #20 tablet PRN Reason: Pain Ondansetron Odt [Zofran] 4 mg TL Q6H PRN #15 tablet PRN Reason: Nausea / Vomiting Oxycodone HCl/Acetaminophen [Percocet 5-325 mg Tablet] 1 each PO Q6H PRN #20 tablet PRN Reason: Pain Tamsulosin [Flomax] 0.4 mg PO DAILY #5 capsule Comments: Drink adequate fluids. Naproxen twice daily for 5-10 days until fully better. Tamsulosin daily for next few days until the stone passes. Zofran as needed for nausea. Add Tyelnol or Percocet for pain as needed. Recheck with PMD or Urology if not improved/passed over the next 2-3 days. Discharge Date/Time: 07/26/17 21:37
[2017-07-26] MEDS ORDERED: KETOROLAC 60 MG/2 ML VIAL IVP STA (18:46)
[2017-07-26] MEDS ORDERED: HYDROmorphone 1 MG/ML SYRINGE IVP STA ×3 (18:46→20:54)
[2017-07-26] MEDS ORDERED: ONDANSETRON 4 MG/2 ML VIAL IVP STA (18:46)
[2017-07-26] MEDS ORDERED: LIDOCAINE-MPF 2% 8 ML in SODIUM CHLORIDE 0.9% 50 ML IV STA (19:51)
[2017-07-26] MEDS ORDERED: DEXAMETHASONE 10 MG/ML VIAL IVP STA (19:51)
--- NOTE | 2017-07-26 19:53 | CT Preliminary Report ---
Exam: CT KUB IMPRESSION: 1. Mildly obstructing 3 x 2 mm distal right ureteral stone. 2. Diverticulosis. [facility] SITE ID: [id number]
--- NOTE | 2017-07-26 19:54 | CT Report ---
EXAM: CT ABDOMEN AND PELVIS (CT KUB) EXAM DATE: 07/26/2017 07:17 PM. CLINICAL HISTORY: Right flank pain. COMPARISONS: 05/24/2015 CT. TECHNIQUE: Routine axial helical CT imaging was performed through the abdomen and pelvis without IV c ontrast. Reconstructions: Coronal and sagittal. In accordance with CT protocol optimization, one or more of the following dose reduction techniques w ere utilized for this exam: automated exposure control, adjustment of mA and/or KV based on patient s ize, or use of iterative reconstructive technique. FINDINGS: Lung Bases: Unremarkable. Right Kidney/Ureter: There is a 3 x 2 mm stone in the distal right ureter resulting in mild collectin g system dilatation. No other calculi seen. Left Kidney/Ureter: No stones, hydronephrosis, or hydroureter. No perinephric fat stranding. Other Solid Organs: Noncontrast images of the solid organs are grossly unremarkable. Gallbladder/Bile Ducts: Unremarkable. Peritoneal Cavity: There is diverticulosis without evidence of diverticulitis. No bowel obstruction, free air or fluid collections. Pelvic Organs: No bladder stones or wall thickening. Noncontrast images of the visualized pelvic orga ns are unremarkable. Vasculature: Unremarkable. Other: None. IMPRESSION: 1. Mildly obstructing 3 x 2 mm distal right ureteral stone. 2. Diverticulosis. [facility] Referring Provider Line: [phone] SITE ID: [id number]
[2017-07-26] MEDS ORDERED: oxyCOD/ACETAMIN 5 MG/325 MG TABLET PO STA (20:54)
[2017-07-26] MEDS ORDERED: ONDANSETRON ODT 4 MG Prepack 2 TL PRN (20:54)
[2017-07-26 22:10] VITALS: BP 145/100
== END 2017-07-26 21:37 | disposition home or self-care (01) ==
LOC: ED 17:33
DX: N20.1 Calculus of ureter (principal); Z87.891 Personal history of nicotine dependence; Z98.1 Arthrodesis status
CPT/HCPCS: 36415; 74176; 80053; 81003; 83690; 85025; 96361; 96365; 96375; 96376; 99283; 99284; A9270; J1170; J7040; 81001; 87086

== ENCOUNTER 2017-07-27 07:49 | Emergency (ER) | payer BC ==
--- NOTE | 2017-07-27 08:22 | ED Physician Documentation ---
PD HPI ABD PAIN - Stated complaint Stated Complaint: BACK PX/MALE - Chief complaint Chief Complaint: Back Pain - History obtained from History obtained from: Patient - History of Present Illness Timing - onset: How many days ago (2) Timing - duration: Days (2) Timing - details: Abrupt onset, Still present Quality: Sharp, Pain Location: RUQ Radiation: Right flank Improved by: Other (nothing) Worsened by: Other (nothing) Associated symptoms: Nausea. No: Vomiting Similar symptoms before: Diagnosis (kidney stone) Recently seen: Emergency Dept - Additional information Additional information: 41-year-old male with a history of chronic back pain was in the emergency department last night for right-sided flank pain CT scan showed a distal right stone and he was medicated and was not able to obtain his pain medications last night. He has thrown in the towel this morning and come back to the ED in misery. He has not consumed fluids this morning. Review of Systems Constitutional: reports: Fatigue. denies: Fever, Chills Eyes: denies: Decreased vision Ears: denies: Ear pain Nose: denies: Congestion Throat: denies: Sore throat Cardiac: denies: Chest pain / pressure, Palpitations Respiratory: denies: Dyspnea, Cough GI: reports: Abdominal Pain, Nausea. denies: Vomiting, Constipation, Diarrhea : reports: Dysuria, Hematuria. denies: Frequency Skin: denies: Rash Musculoskeletal: reports: Back pain. denies: Neck pain, Extremity pain Neurologic: denies: Generalized weakness, Focal weakness PD PAST MEDICAL HISTORY - Past Medical History Cardiovascular: None Respiratory: None Neuro: None Endocrine/Autoimmune: None GI: GERD : None HEENT: None Psych: Depression, Anxiety, Post traumatic stress disorder Musculoskeletal: None, Chronic back pain Derm: None - Past Surgical History Past Surgical History: Yes Ortho: Other - Present Medications Home Medications: Ambulatory Orders Medication Instructions Recorded Confirmed Omeprazole [PriLOSEC] 20 mg PO DAILY 01/25/17 07/09/17 Naproxen [Naprosyn] 500 mg PO BID PRN #20 tablet 07/26/17 Ondansetron Odt [Zofran] 4 mg TL Q6H PRN #15 tablet 07/26/17 Oxycodone HCl/Acetaminophen 1 each PO Q6H PRN #20 tablet 07/26/17 [Percocet 5-325 mg Tablet] Tamsulosin [Flomax] 0.4 mg PO DAILY #5 capsule 07/26/17 - Allergies Allergies/Adverse Reactions: Allergies Allergy/AdvReac Type Severity Reaction Status Date / Time No Known Drug Allergies Allergy Verified 07/27/17 07:53 - Social History Does the pt smoke?: No Smoking Status: Never smoker Does the pt drink ETOH?: No Does the pt have substance abuse?: No - Immunizations Immunizations are current?: Yes - POLST Patient has POLST: No PD ED PE NORMAL - Vitals Vital signs reviewed: Yes (tachy and hypertensive ) - General General: Alert and oriented X 3, Well developed/nourished, Other (41 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 ) - HEENT HEENT: Atraumatic, PERRL, EOMI - Neck Neck: Supple, no meningeal sign - Cardiac Cardiac: No murmur, Other (tachy to 110) - Respiratory Respiratory: No respiratory distress, Clear bilaterally - Abdomen Abdomen: Soft, Non tender - Back Back: No CVA TTP, No spinal TTP - Derm Derm: Normal color, Warm and dry, No rash - Extremities Extremities: No deformity, No edema - Neuro Neuro: No motor deficit, No sensory deficit Eye Opening: Spontaneous Motor: Obeys Commands Verbal: Oriented GCS Score: 15 - Psych Psych: Normal mood, Normal affect Results - Vitals Vitals: Vital Signs - 24 hr 07/27/17 07:51 Temperature 36.4 C L Heart Rate 128 H Respiratory 18 Rate Blood Pressure 150/101 H O2 Saturation 99 Oxygen O2 Source Room air Procedures - Bedside sono Bedside sono by EMP: These bedside ultrasound the right kidney is imaged and there is evidence of mild hydronephrosis present. The kidney is sonographically nontender. - IVC sono (time) 0830 Bedside IVC sono: IVC measures (cm) (1.2), Dehydration (est 1 liter deficit) PD MEDICAL DECISION MAKING - ED course Complexity details: reviewed old records, reviewed results, re-evaluated patient , considered differential, d/w patient ED course: 41-year-old male with chronic back pain today has a distal right ureteral stone and has lost control of his pain. He is mildly dehydrated here in the emergency department an IV is begun he is given a liter of saline and a milligram of Dilaudid. Departure - Departure Disposition: 01 Home, Self Care Clinical Impression: Ureterolithiasis Condition: Stable Instructions: ED Stone Renal W Colic Follow-Up: April Griggs PA-C [Primary Care Provider] -
[2017-07-27] MEDS ORDERED: ONDANSETRON 4 MG/2 ML VIAL IVP STA (08:34)
[2017-07-27] MEDS ORDERED: HYDROmorphone 1 MG/ML SYRINGE IVP STA (08:34)
[2017-07-27] MEDS ORDERED: SODIUM CHLORIDE 0.9% 1,000 ML IV ONE (08:34)
[2017-07-27 10:10] VITALS: BP 146/95
== END 2017-07-27 10:09 | disposition home or self-care (01) ==
LOC: ED 07:49
DX: N20.1 Calculus of ureter (principal); E86.0 Dehydration; K21.9 Gastro-esophageal reflux disease without esophagitis; M54.5 Low back pain; G89.29 Other chronic pain
CPT/HCPCS: 96361; 96374; 99283; 99284; J1170

== ENCOUNTER 2017-07-29 15:22 | Emergency (ER) | payer BC ==
[2017-07-29 16:02] LABS: BASOPHILS # (AUTO) 0.1 10^3/uL (0.0-0.1); BASOPHILS % (AUTO) 0.7 %; EOSINOPHILS # (AUTO) 0.1 10^3/uL (0.0-0.7); EOSINOPHILS % (AUTO) 0.8 %; LYMPHOCYTES # (AUTO) 3.5 10^3/uL (1.5-3.5); LYMPHOCYTES % (AUTO) 26.4 %; MEAN CORPUSCULAR HEMOGLOBIN 27.4 pg (27.0-31.0); MEAN CORPUSCULAR VOLUME 83.1 fL (80.0-94.0); MEAN PLATELET VOLUME 7.9 fL (7.4-11.4); MONOCYTES # (AUTO) 1.1 10^3/uL (0.0-1.0); NEUTROPHILS # (AUTO) 8.4 10^3/uL (1.5-6.6); NEUTROPHILS % (AUTO) 64.1 %; PLT - PLATELET COUNT 314 10^3/uL (130-450); RED BLOOD COUNT 5.11 10^6/uL (4.70-6.10); RED CELL DISTRIBUTION WIDTH 14.4 % (12.0-15.0); WHITE BLOOD COUNT 13.1 x10^3/uL (4.8-10.8)
--- NOTE | 2017-07-29 16:12 | ED Physician Documentation ---
PD HPI ABD PAIN - Stated complaint Stated Complaint: BACK PX - Chief complaint Chief Complaint: Abd Pain - History obtained from History obtained from: Patient - History of Present Illness Timing - onset: How many days ago (few) Timing - duration: Days (few) Timing - details: Waxing and waning (worsening severely again this afternoon. Has been being treated for ureterolithiasis. 3mm stone distal right ureter with mild hydro on CT few days ago.) Quality: Aching, Sharp, Pain Location: RLQ Radiation: Right flank Worsened by: No: Moving, Breathing, Position Associated symptoms: Nausea, Loss of appetite. No: Fever, Diarrhea, Dysuria, Hematuria Recently seen: Emergency Dept Review of Systems Constitutional: denies: Fever, Chills, Myalgias Cardiac: denies: Chest pain / pressure Respiratory: denies: Dyspnea, Cough GI: reports: Abdominal Pain, Nausea. denies: Vomiting, Diarrhea : denies: Dysuria, Frequency, Hematuria Skin: denies: Rash, Lesions Musculoskeletal: reports: Back pain. denies: Neck pain PD PAST MEDICAL HISTORY - Past Medical History Cardiovascular: None Respiratory: None Neuro: None Endocrine/Autoimmune: None GI: GERD : None HEENT: None Psych: Depression, Anxiety, Post traumatic stress disorder Musculoskeletal: None, Chronic back pain Derm: None - Past Surgical History Past Surgical History: Yes Ortho: Other - Present Medications Home Medications: Ambulatory Orders Medication Instructions Recorded Confirmed Omeprazole [PriLOSEC] 20 mg PO DAILY 01/25/17 07/09/17 Naproxen [Naprosyn] 500 mg PO BID PRN #20 tablet 07/26/17 Ondansetron Odt [Zofran] 4 mg TL Q6H PRN #15 tablet 07/26/17 Oxycodone HCl/Acetaminophen 1 each PO Q6H PRN #20 tablet 07/26/17 [Percocet 5-325 mg Tablet] Tamsulosin [Flomax] 0.4 mg PO DAILY #5 capsule 07/26/17 Oxycodone HCl/Acetaminophen 1 - 2 each PO Q6H PRN #20 tablet 07/29/17 [Percocet 5-325 mg Tablet] - Allergies Allergies/Adverse Reactions: Allergies Allergy/AdvReac Type Severity Reaction Status Date / Time No Known Drug Allergies Allergy Verified 07/29/17 15:34 - Social History Does the pt smoke?: No Smoking Status: Never smoker Does the pt drink ETOH?: No Does the pt have substance abuse?: No - Immunizations Immunizations are current?: Yes - POLST Patient has POLST: No PD ED PE NORMAL - Vitals Vital signs reviewed: Yes - General General: Alert and oriented X 3, Well developed/nourished, Other (appears in pain) - Cardiac Cardiac: RRR, No murmur - Respiratory Respiratory: Clear bilaterally - Abdomen Abdomen: Normal bowel sounds, Soft, Non tender, Non distended - Male Male : Deferred - Back Back: No CVA TTP - Derm Derm: Normal color, Warm and dry - Neuro Neuro: Alert and oriented X 3, No motor deficit, Normal speech Results - Vitals Vitals: Vital Signs - 24 hr 07/29/17 07/29/17 07/29/17 15:32 17:29 18:40 Temperature 36.5 C 36.7 C Heart Rate 107 H 78 85 Respiratory 22 17 22 Rate Blood Pressure 148/115 H 152/90 H 157/97 H O2 Saturation 98 99 97 07/29/17 19:19 Temperature Heart Rate Respiratory 17 Rate Blood Pressure O2 Saturation Oxygen O2 Source Room air - Labs Labs: Laboratory Tests 07/29/17 07/29/17 07/29/17 15:54 15:54 16:55 WBC 13.1 H RBC 5.11 Hgb 14.0 Hct 42.5 MCV 83.1 MCH 27.4 MCHC 33.0 RDW 14.4 Plt Count 314 MPV 7.9 Neut # 8.4 H Lymph # 3.5 Parker # 1.1 H Eos # 0.1 Baso # 0.1 Absolute Nucleated RBC 0.01 Nucleated RBC % 0.1 Sodium 136 Potassium 3.7 Chloride 100 L Carbon Dioxide 26 Anion Gap 10.0 BUN 21 H Creatinine 1.0 Estimated GFR (MDRD) 83 L Glucose 96 Calcium 8.7 Total Bilirubin 0.3 AST 21 ALT 24 Alkaline Phosphatase 46 Total Protein 7.6 Albumin 4.5 Globulin 3.1 Albumin/Globulin Ratio 1.5 Lipase 11 L Urine Color YELLOW Urine Clarity CLEAR Urine pH 6.0 Ur Specific [place] <=1.005 Urine Protein NEGATIVE Urine Glucose (UA) NEGATIVE Urine Ketones NEGATIVE Urine Occult Blood TRACE-LYSE Urine Nitrite NEGATIVE Urine Bilirubin NEGATIVE Urine Urobilinogen 0.2 (NORMAL) Ur Leukocyte Esterase NEGATIVE Ur Microscopic Review NOT INDICATED Urine Culture Comments NOT INDICATED - Rads (name of study) renal U/S Radiology: Prelim report reviewed (mild hydronephrosis) PD MEDICAL DECISION MAKING - ED course Complexity details: reviewed old records, reviewed results (U/S showing only mild hydronephrosis. UA without signs of infection. ), re-evaluated patient ( pain improved with IV meds. He is having marked pain and repeat ED visits for that, with small stone and only mild hydro. I talke with Urology, Dr. Simmons, and she will see patient in the next 1-2 days. Did not see need for emergent intervention. ), considered differential, d/w patient Departure - Departure Disposition: 01 Home, Self Care Clinical Impression: Ureterolithiasis, Abdominal pain Condition: Stable Record reviewed to determine appropriate education?: Yes Instructions: ED Stone Renal W Colic Follow-Up: April Griggs PA-C [Primary Care Provider] - Shasta Simmons MD [Physician No Access] - Prescriptions: Oxycodone HCl/Acetaminophen [Percocet 5-325 mg Tablet] 1 - 2 each PO Q6H PRN # 20 tablet PRN Reason: Pain Comments: Continue current medications of the anti-inflammatory Flomax and Percocet if needed for pain. Call urology tomorrow morning for an appointment. They typically will get you in that day or the next. Return if worse again. Discharge Date/Time: 07/29/17 19:20
[2017-07-29 16:14] LABS: ALBUMIN 4.5 g/dL (3.2-5.5); ALBUMIN/GLOBULIN RATIO 1.5 (1.0-2.2); BILIRUBIN,TOTAL 0.3 mg/dL (0.2-1.0); CALCIUM 8.7 mg/dL (8.5-10.3); TOTAL PROTEIN 7.6 g/dL (6.7-8.2)
[2017-07-29] MEDS ORDERED: HYDROmorphone 1 MG/ML SYRINGE IVP STA ×3 (16:23→18:47)
[2017-07-29] MEDS ORDERED: SODIUM CHLORIDE 0.9% 1,000 ML IV ONE (16:23)
[2017-07-29] MEDS ORDERED: KETOROLAC 60 MG/2 ML VIAL IVP STA (16:23)
[2017-07-29] MEDS ORDERED: ONDANSETRON 4 MG/2 ML VIAL IVP STA (16:23)
[2017-07-29 17:04] LABS: BILIRUBIN,URINE NEGATIVE (NEGATIVE); GLUCOSE, URINE (UA) NEGATIVE (NEGATIVE); KETONES,URINE (UA) NEGATIVE (NEGATIVE); LEUKOCYTE ESTERASE, URINE NEGATIVE (NEGATIVE); NITRITE,URINE NEGATIVE (NEGATIVE); OCCULT BLOOD,URINE TRACE-LYSE (NEGATIVE); PROTEIN,URINE NEGATIVE (NEGATIVE); UROBILINOGEN,URINE 0.2 (NORMAL) E.U./dL (NORMAL)
[2017-07-29 17:05] LABS: CLARITY,URINE CLEAR (CLEAR)
[2017-07-29] MEDS ORDERED: LIDOCAINE-MPF 2% 6 ML in SODIUM CHLORIDE 0.9% 50 ML IV STA (17:32)
--- NOTE | 2017-07-29 17:39 | Ultrasound Report ---
EXAM: RENAL ULTRASOUND LIMITED EXAM DATE: 07/29/2017 05:18 PM. CLINICAL HISTORY: Right ureteral stone; assess hydronephrosis. COMPARISON: 05/25/2018. TECHNIQUE: Real-time scanning was performed with static images obtained. FINDINGS: Right Kidney: 12.0 x 5.9 x 5.5 cm. There is mild right hydronephrosis. No evidence of contour deformi ng mass. Left Kidney: Not evaluated. Bladder: Bilateral jets seen. The prevoid bladder volume was 470 cc. The postvoid bladder volume was 6 cc. Other: None. IMPRESSION: There is mild right hydronephrosis. [facility] Referring Provider Line: [phone] SITE ID: [id number]
[2017-07-29 18:41] VITALS: BP 157/97
== END 2017-07-29 19:20 | disposition home or self-care (01) ==
LOC: ED 15:22
DX: N13.2 Hydronephrosis with renal and ureteral calculous obstruction (principal); K21.9 Gastro-esophageal reflux disease without esophagitis
CPT/HCPCS: 36415; 76775; 80053; 81003; 83690; 85025; 96374; 96375; 96376; 99283; 99284; J1170; J7040; 81001; 87086

== ENCOUNTER 2017-08-01 22:45 | Emergency (ER) | payer BC ==
[2017-08-01] MEDS ORDERED: KETOROLAC 60 MG/2 ML VIAL IM STA (22:48)
[2017-08-01] MEDS ORDERED: LIDOCAINE-MPF 2% 10 ML in SODIUM CHLORIDE 0.9% 50 ML IV STA (23:01)
--- NOTE | 2017-08-01 23:09 | ED Physician Documentation ---
PD HPI MALE - Stated complaint Stated Complaint: ABD/BACK PX - Chief complaint Chief Complaint: Abd Pain - History obtained from History obtained from: Patient - History of Present Illness Timing - onset: How many weeks ago (1) Timing - details: Intermittant, Waxing and waning Associated symptoms: Unable to urinate Similar symptoms before: Work up / diagnostics, Treatment, Follow up Recently seen: Emergency Dept - Additional information Additional information: Patient is a 41 year old male who was diagnosed with a kidney stone about a week ago. the stone is 2mm by 3mm but it has not passed. Patient states that he continue to get right sided pain with radiation to his flank. patient has follow up with urology tomorrow but he continues to have breakthrough pain. Review of Systems Constitutional: denies: Fever, Chills Eyes: reports: Reviewed and negative Ears: reports: Reviewed and negative Nose: reports: Reviewed and negative Throat: reports: Reviewed and negative Cardiac: denies: Chest pain / pressure Respiratory: denies: Dyspnea, Cough, Wheezing GI: reports: Abdominal Pain, Nausea. denies: Vomiting : denies: Dysuria, Frequency, Hematuria Skin: denies: Rash, Abrasion (s) Neurologic: denies: Generalized weakness, Focal weakness, Numbness Immunocompromised: denies: Immunocompromised PD PAST MEDICAL HISTORY - Past Medical History Cardiovascular: None Respiratory: None Neuro: None Endocrine/Autoimmune: None GI: GERD : None, Kidney stones HEENT: None Psych: Depression, Anxiety, Post traumatic stress disorder Musculoskeletal: None, Chronic back pain Derm: None - Past Surgical History Past Surgical History: Yes Ortho: Other - Present Medications Home Medications: Ambulatory Orders Medication Instructions Recorded Confirmed Omeprazole [PriLOSEC] 20 mg PO DAILY 01/25/17 07/09/17 Naproxen [Naprosyn] 500 mg PO BID PRN #20 tablet 07/26/17 Ondansetron Odt [Zofran] 4 mg TL Q6H PRN #15 tablet 07/26/17 Oxycodone HCl/Acetaminophen 1 each PO Q6H PRN #20 tablet 07/26/17 [Percocet 5-325 mg Tablet] Tamsulosin [Flomax] 0.4 mg PO DAILY #5 capsule 07/26/17 Oxycodone HCl/Acetaminophen 1 - 2 each PO Q6H PRN #20 tablet 07/29/17 [Percocet 5-325 mg Tablet] - Allergies Allergies/Adverse Reactions: Allergies Allergy/AdvReac Type Severity Reaction Status Date / Time No Known Drug Allergies Allergy Verified 07/29/17 15:34 - Social History Does the pt smoke?: No Smoking Status: Never smoker Does the pt drink ETOH?: No Does the pt have substance abuse?: No - Immunizations Immunizations are current?: Yes - POLST Patient has POLST: No PD ED PE NORMAL - General General: Alert and oriented X 3, Well developed/nourished - HEENT HEENT: Atraumatic, PERRL - Neck Neck: Supple, no meningeal sign - Cardiac Cardiac: RRR, No murmur - Respiratory Respiratory: No respiratory distress - Abdomen Abdomen: Soft, Non distended - Derm Derm: Normal color, Warm and dry, No rash - Extremities Extremities: No deformity, Normal ROM s pain, No calf tenderness / cord - Neuro Neuro: Alert and oriented X 3, No motor deficit, No sensory deficit, Normal speech - Psych Psych: Normal mood PD ED PE EXPANDED - General General: Alert, In Pain Results - Vitals Vitals: Vital Signs - 24 hr 08/01/17 08/01/17 08/02/17 22:48 23:44 00:14 Temperature 36.5 C Heart Rate 91 104 H 95 Respiratory 18 17 11 L Rate Blood Pressure 170/108 H 144/89 H 131/100 H O2 Saturation 98 98 95 Oxygen O2 Source Room air - Labs Labs: Laboratory Tests 08/01/17 23:20 Urine Color YELLOW Urine Clarity CLEAR Urine pH 7.0 Ur Specific [place] 1.015 Urine Protein NEGATIVE Urine Glucose (UA) NEGATIVE Urine Ketones NEGATIVE Urine Occult Blood NEGATIVE Urine Nitrite NEGATIVE Urine Bilirubin NEGATIVE Urine Urobilinogen 0.2 (NORMAL) Ur Leukocyte Esterase NEGATIVE Ur Microscopic Review NOT INDICATED Urine Culture Comments NOT INDICATED PD MEDICAL DECISION MAKING - ED course Complexity details: reviewed old records, reviewed results, re-evaluated patient , considered differential, d/w patient ED course: Patient was seen and examined at bedside. Urine was collected. IV access was gained and patient was treated with toradol and IV lidocaine. Patient stated that his pain persisted and was tearful. Patient was treated with 1mg of dilaudid. After the dilauded patient stated that he was feeling better and wanted to go home. While renal colic could be causing his pain there was no hematuria and the stone was only 2by3mm. Patient had urological follow up tomorrow and was stable for discharge with outpatient follow up. Departure - Departure Disposition: 01 Home, Self Care Clinical Impression: Renal colic Condition: Good Instructions: ED Stone Renal W Colic Follow-Up: April Griggs PA-C [Primary Care Provider] - Tomorrow Comments: please follow up with your urologist tomorrow
[2017-08-01] MEDS ORDERED: LIDOCAINE-MPF 2% 5 ML VIAL ONE (23:23)
[2017-08-01 23:28] LABS: BILIRUBIN,URINE NEGATIVE (NEGATIVE); CLARITY,URINE CLEAR (CLEAR); GLUCOSE, URINE (UA) NEGATIVE (NEGATIVE); KETONES,URINE (UA) NEGATIVE (NEGATIVE); LEUKOCYTE ESTERASE, URINE NEGATIVE (NEGATIVE); NITRITE,URINE NEGATIVE (NEGATIVE); OCCULT BLOOD,URINE NEGATIVE (NEGATIVE); PROTEIN,URINE NEGATIVE (NEGATIVE); UROBILINOGEN,URINE 0.2 (NORMAL) E.U./dL (NORMAL)
[2017-08-01] MEDS ORDERED: HYDROmorphone 1 MG/ML SYRINGE IVP STA (23:53)
[2017-08-02 00:15] VITALS: BP 131/100
== END 2017-08-02 00:21 | disposition home or self-care (01) ==
LOC: ED 22:45
DX: N20.0 Calculus of kidney (principal); K21.9 Gastro-esophageal reflux disease without esophagitis
CPT/HCPCS: 81003; 96365; 96372; 96375; 99283; 99284; J1170; 81001; 87086

== ENCOUNTER 2021-03-15 09:52 | Emergency (ER) | payer BC ==
--- NOTE | 2021-03-15 10:50 | ED Physician Documentation ---
PD HPI URI - Stated complaint Stated Complaint: SOA/DIZZINESS - Chief complaint Chief Complaint: Fever - History obtained from History obtained from: Patient - History of Present Illness Timing - onset: How many days ago (4-5) Timing duration: Days (4-5) Timing details: Gradual onset, Still present Associated symptoms: Fever, Nasal congestion, Dry cough, Dyspnea. 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 No: Immunocompromised, COPD / asthma Similar symptoms before: Has not had sx before Recently seen: Clinic (had COVID test 3 days ago that was negative.) Review of Systems Constitutional: reports: Fever, Chills, Myalgias Nose: reports: Congestion Throat: denies: Sore throat Respiratory: reports: Cough GI: reports: Nausea. denies: Abdominal Pain, Vomiting, Diarrhea Skin: denies: Rash Neurologic: reports: Generalized weakness, Headache. denies: Altered mental status PD PAST MEDICAL HISTORY - Past Medical History Cardiovascular: None Respiratory: None Endocrine/Autoimmune: None GI: GERD : None, Kidney stones HEENT: None Psych: Depression, Anxiety, Post traumatic stress disorder Musculoskeletal: None, Chronic back pain Derm: None - Past Surgical History Past Surgical History: Yes Ortho: Other - Present Medications Home Medications: Ambulatory Orders Medication Instructions Recorded Confirmed Omeprazole [PriLOSEC] 20 mg PO DAILY 01/25/17 07/09/17 Albuterol Sulf [Ventolin Hfa 2 - 3 puffs INH Q4HR PRN #1 inhaler 03/15/21 Inhaler] Benzonatate [Tessalon] 100 mg PO TID PRN #20 cap 03/15/21 Buprenorphine/Nalox 0 mg TID 03/15/21 Cetirizine [ZyrTEC] 10 mg PO BID 7 Days #14 tablet 03/15/21 dexAMETHasone [Decadron] 4 mg PO DAILY 6 Days #6 tablet 03/15/21 - Allergies Allergies/Adverse Reactions: Allergies Allergy/AdvReac Type Severity Reaction Status Date / Time No Known Drug Allergies Allergy Verified 03/16/21 01:15 - Social History Does the pt smoke?: No Smoking Status: Never smoker Does the pt drink ETOH?: No Does the pt have substance abuse?: No - Immunizations Immunizations are current?: Yes - POLST Patient has POLST: No PD ED PE NORMAL - Vitals Vital signs reviewed: Yes - General General: Alert and oriented X 3, No acute distress (but very anxious about being ill.), Well developed/nourished - HEENT HEENT: Pharynx benign - Neck Neck: Supple, no meningeal sign, No adenopathy - Cardiac Cardiac: RRR, No murmur - Respiratory Respiratory: No respiratory distress. No: Clear bilaterally (tight sounds with scant wheezes. ) - Abdomen Abdomen: Soft, Non tender - Derm Derm: Normal color, Warm and dry - Neuro Neuro: Alert and oriented X 3, No motor deficit, Normal speech Results - Vitals Vitals: Vital Signs - 24 hr 03/15/21 03/15/21 03/15/21 10:15 11:26 12:20 Temperature 36.0 C L Heart Rate 94 93 97 Respiratory 16 11 L 17 Rate Blood Pressure 153/100 H 150/75 H O2 Saturation 99 99 Oxygen O2 Source Room air - EKG (time done) 10:02 Rate: Rate (enter#) (92) Rhythm: NSR [place]: Normal Intervals: Normal [place] QRS: Normal Ischemia: Normal ST segments. No: ST elevation c/w ischemia, ST depression - Rads (name of study) chest xray Radiology: Prelim report reviewed (no infiltrates), See rad report PD MEDICAL DECISION MAKING - ED course Complexity details: re-evaluated patient (feels better breathing with Albuterol MDI. ), considered differential (patient very anxious about being COVID or very sick. He does not seem too ill. Can test for COVID and get CXR. ), d/w patient Departure - Departure Disposition: 01 Home, Self Care Clinical Impression: Upper respiratory infection Qualifiers: URI type: unspecified URI Qualified Code(s): J06.9 - Acute upper respiratory infection, unspecified Condition: Stable Record reviewed to determine appropriate education?: Yes Prescriptions: Albuterol Sulf [Ventolin Hfa Inhaler] 2 - 3 puffs INH Q4HR PRN #1 inhaler PRN Reason: Shortness Of Air/Wheezing dexAMETHasone [Decadron] 4 mg PO DAILY 6 Days #6 tablet Benzonatate [Tessalon] 100 mg PO TID PRN #20 cap PRN Reason: Cough Cetirizine [ZyrTEC] 10 mg PO BID 7 Days #14 tablet Comments: Your chest x-ray is clear without any signs of pneumonia. Presume a viral respiratory illness. Your Covid test should result in a day or 2. Off work for the next couple of days anyway since you are ill. We will treat this with albuterol inhaler 2 to 3 puffs 4 times a day for the next several days to week. Also Decadron steroid anti-inflammatory for bronchial inflammation. Add Tessalon if needed for cough. Also cetirizine antihistamine twice daily for a week for congestion. I would presumes some improvement over the next several days. I transmitted the prescriptions to [facility] pharmacy in [place]. You have a Covid test pending. You need to self quarantine until the result is done and negative. Do not leave your house. Do not get near anybody. The results should be done in 48 to 72 hours, but sometimes longer. We will call with a positive result, the fastest way to get a negative result for con firmation though is to go to the hospital website at [email or web address], click on the my [facility] tab and sign up for the patient portal. If any friends or family get sick and would like to have a Covid test done, but do not have signs or symptoms that would necessitate being hospitalized, we encourage testing through our coronavirus swabbing station, call [phone] to schedule an appointment. Forms: Activity restrictions Discharge Date/Time: 03/15/21 13:01
[2021-03-15] MEDS ORDERED: BENZONATATE 100 MG CAPSULE PO STA (11:15)
[2021-03-15] MEDS ORDERED: CHERRY SYRUP 10 ML UDC PO ONE (11:15)
[2021-03-15] MEDS ORDERED: ACETAMINOPHEN 325 MG TABLET PO STA (11:15)
[2021-03-15] MEDS ORDERED: CETIRIZINE 10 MG TABLET PO STA (11:15)
[2021-03-15] MEDS ORDERED: ALBUTEROL 1 PUFF INH STA (11:15)
[2021-03-15] MEDS ORDERED: DEXAMETHASONE 10 MG/ML VIAL PO STA (11:15)
[2021-03-15 11:27] VITALS: BP 150/75
--- NOTE | 2021-03-15 11:47 | XRAY Report ---
PROCEDURE: Chest 1 View X-Ray INDICATIONS: chest pain TECHNIQUE: One view of the chest was acquired. COMPARISON: Chest x-ray 08/17/2016 FINDINGS: Surgical changes and devices: None. Lungs and pleura: No pleural effusions or pneumothorax. Lungs are clear. Mediastinum: Mediastinal contours appear normal. Heart size is limits of normal size. bones and chest wall: No suspicious bony lesions. Overlying soft tissues appear unremarkable. IMPRESSION: No acute pulmonary process. Reviewed by: Donna Sweeney MD on 03/15/2021 11:45 AM PDT Approved by: Donna Sweeney MD on 03/15/2021 11:45 AM PDT Station ID: [id number]
[2021-03-15] MEDS ORDERED: LORazepam 1 MG TABLET PO STA (12:08)
== END 2021-03-15 13:01 | disposition home or self-care (01) ==
LOC: ED 09:52
DX: U07.1 COVID-19 (principal); J06.9 Acute upper respiratory infection, unspecified
CPT/HCPCS: 71045; 87635; 93005; 94640; 99283; 99284; A9270; J8499

== ENCOUNTER 2021-03-16 01:03 | Emergency (ER) | payer BC ==
[2021-03-16] MEDS ORDERED: hydrOXYzine PAMOATE 25 MG CAPSULE PO STA (01:20)
--- NOTE | 2021-03-16 06:33 | ED Physician Documentation ---
History of Present Illness - Stated complaint Stated Complaint: SOA, PANIC ATTACKS - Chief complaint Chief Complaint: General - History obtained from History obtained from: Patient - Additonal information Additional information: 45-year-old man with history of PTSD, anxiety, sobriety from alcohol, p/w acute insomnia this evening. patient is quarantining at home due to suspected covid-19 infection and states he was unable to sleep, felt extremely upset, and wanted to buy alcohol but came here instead. denies si/hi/avh. Review of Systems Ten Systems: 10 systems reviewed and negative Constitutional: denies: Fever, Chills Respiratory: reports: Cough Psychiatric: reports: Depressed, Anxiety, Insomnia. denies: Suicidal, Homicidal PD PAST MEDICAL HISTORY - Past Medical History Past Medical History: Yes Cardiovascular: None Respiratory: None Neuro: None Endocrine/Autoimmune: None GI: GERD : None, Kidney stones HEENT: None Psych: Depression, Anxiety, Post traumatic stress disorder Musculoskeletal: None, Chronic back pain Derm: None - Past Surgical History Past Surgical History: Yes Ortho: Other - Present Medications Home Medications: Ambulatory Orders Medication Instructions Recorded Confirmed Omeprazole [PriLOSEC] 20 mg PO DAILY 01/25/17 07/09/17 Albuterol Sulf [Ventolin Hfa 2 - 3 puffs INH Q4HR PRN #1 inhaler 03/15/21 Inhaler] Benzonatate [Tessalon] 100 mg PO TID PRN #20 cap 03/15/21 Buprenorphine/Nalox 0 mg TID 03/15/21 Cetirizine [ZyrTEC] 10 mg PO BID 7 Days #14 tablet 03/15/21 dexAMETHasone [Decadron] 4 mg PO DAILY 6 Days #6 tablet 03/15/21 - Allergies Allergies/Adverse Reactions: Allergies Allergy/AdvReac Type Severity Reaction Status Date / Time No Known Drug Allergies Allergy Verified 03/16/21 01:15 - Social History Does the pt smoke?: No Smoking Status: Never smoker Does the pt drink ETOH?: No Does the pt have substance abuse?: No - Immunizations Immunizations are current?: Yes - POLST Patient has POLST: No PD ED PE NORMAL - Vitals Vital signs reviewed: Yes - General General: Alert and oriented X 3, Well developed/nourished, Other (anxious appearing) - HEENT HEENT: Atraumatic, PERRL, EOMI - Neck Neck: Supple, no meningeal sign - Cardiac Cardiac: Other (tachycardic rate, regular rhythm) - Respiratory Respiratory: No respiratory distress, Clear bilaterally - Abdomen Abdomen: Non tender, Non distended - Derm Derm: Normal color, Warm and dry - Extremities Extremities: No deformity - Neuro Neuro: Alert and oriented X 3 - Psych Psych: Other (anxious mood and affect) Results - Vitals Vitals: Vital Signs - 24 hr 03/16/21 03/16/21 03/16/21 01:12 02:18 03:03 Temperature 36.7 C Heart Rate 122 H 92 90 Respiratory 18 16 16 Rate Blood Pressure 151/104 H 151/104 H 148/102 H O2 Saturation 98 94 96 03/16/21 05:00 Temperature 36.6 C Heart Rate 85 Respiratory 16 Rate Blood Pressure 119/85 H O2 Saturation 97 Oxygen O2 Source Room air PD MEDICAL DECISION MAKING - ED course ED course: 45-year-old man currently under quarantine for possible COVID-19 infection presents with acute panic attack this evening and insomnia. Patient was provided hydroxyzine for anxiety/insomnia and rested quietly during the night. He is endorsed to Dr. Kim, daytime ED MD for social work evaluation. Departure - Departure Clinical Impression: Insomnia, Anxiety, PTSD (post-traumatic stress disorder) Condition: Stable Instructions: ED Panic Attack Comments: You were seen in the emergency department for acute anxiety and for inability to sleep last night. Please continue to quarantine at home and follow-up with your primary doctor via telehealth. Return to the emergency department you have any new or worsening symptoms or other concerns.
[2021-03-16 07:03] VITALS: BP 122/82
== END 2021-03-16 08:24 | disposition home or self-care (01) ==
LOC: ED 01:03
DX: G47.00 Insomnia, unspecified (principal); F43.10 Post-traumatic stress disorder, unspecified; F41.9 Anxiety disorder, unspecified
CPT/HCPCS: 99282; 99283; A9270

== ENCOUNTER 2021-03-17 10:25 | Emergency (ER) | payer BC ==
--- NOTE | 2021-03-17 11:10 | ED Physician Documentation ---
PD HPI MHE - Stated complaint Stated Complaint: MHE - Chief complaint Chief Complaint: MHE - History obtained from History obtained from: Patient - History of Present Illness Primary symptom: Anxiety Timing - onset: How many days ago (several) Pain level max: 0 Pain level now: 0 - Additional information Additional information: 45-year-old male presents to the emergency department with increasing anxiety over the past several days. He is currently been quarantined at home for 10 days for Covid. He states he feels very restless and anxious. Has been considering suicide but does not want to harm himself. Does not feel like he is going to harm himself. He states that he is having difficulty sleeping and like his mind is racing. He states he currently does not have a counselor or psychiatrist. Review of Systems Ten Systems: 10 systems reviewed and negative Constitutional: denies: Fever, Chills Nose: denies: Rhinorrhea / runny nose, Congestion GI: denies: Vomiting, Diarrhea Skin: denies: Rash Musculoskeletal: denies: Neck pain, Back pain Neurologic: denies: Headache PD PAST MEDICAL HISTORY - Past Medical History Cardiovascular: None Respiratory: None Neuro: None Endocrine/Autoimmune: None GI: GERD : None, Kidney stones HEENT: None Psych: Depression, Anxiety, Post traumatic stress disorder Musculoskeletal: None, Chronic back pain Derm: None - Past Surgical History Past Surgical History: Yes Ortho: Other - Present Medications Home Medications: Ambulatory Orders Medication Instructions Recorded Confirmed Omeprazole [PriLOSEC] 20 mg PO DAILY 01/25/17 07/09/17 Albuterol Sulf [Ventolin Hfa 2 - 3 puffs INH Q4HR PRN #1 inhaler 03/15/21 Inhaler] Benzonatate [Tessalon] 100 mg PO TID PRN #20 cap 03/15/21 Buprenorphine/Nalox 0 mg TID 03/15/21 Cetirizine [ZyrTEC] 10 mg PO BID 7 Days #14 tablet 03/15/21 dexAMETHasone [Decadron] 4 mg PO DAILY 6 Days #6 tablet 03/15/21 LORazepam [Ativan] 1 mg PO BID PRN #7 tablet 03/17/21 - Allergies Allergies/Adverse Reactions: Allergies Allergy/AdvReac Type Severity Reaction Status Date / Time No Known Drug Allergies Allergy Verified 03/17/21 10:49 - Social History Does the pt smoke?: No Smoking Status: Never smoker Does the pt drink ETOH?: No Does the pt have substance abuse?: No - Immunizations Immunizations are current?: Yes - POLST Patient has POLST: No PD ED PE NORMAL - Vitals Vital signs reviewed: Yes - General General: Alert and oriented X 3, No acute distress - HEENT HEENT: PERRL, Moist mucous membranes - Neck Neck: Supple, no meningeal sign - Cardiac Cardiac: RRR, No murmur, Strong equal pulses - Respiratory Respiratory: No respiratory distress, Clear bilaterally - Abdomen Abdomen: Normal bowel sounds, Soft, Non tender, Non distended - Derm Derm: Warm and dry - Extremities Extremities: No deformity - Neuro Neuro: Alert and oriented X 3 - Psych Psych: Normal mood, Normal affect Results - Vitals Vitals: Vital Signs - 24 hr 03/17/21 03/17/21 10:45 15:25 Temperature 37.1 C Heart Rate 132 H 108 H Respiratory 20 15 Rate Blood Pressure 166/123 H 146/101 H O2 Saturation 98 99 Oxygen O2 Source Room air - Labs Labs: Laboratory Tests 03/17/21 03/17/21 03/17/21 11:36 11:36 11:36 WBC 6.5 RBC 5.53 Hgb 15.5 Hct 46.7 MCV 84.4 MCH 28.0 MCHC 33.2 RDW 13.2 Plt Count 200 MPV 10.0 Neut # (Auto) 4.7 Lymph # (Auto) 1.2 L [place] # (Auto) 0.5 Eos # (Auto) 0.0 Baso # (Auto) 0.0 Absolute Nucleated RBC 0.00 Nucleated RBC % 0.0 Sodium 133 L Potassium 3.9 Chloride 95 L Carbon Dioxide 26 Anion Gap 12.0 BUN 17 Creatinine 0.7 Estimated GFR (MDRD) 123 Glucose 117 H Calcium 8.7 Total Bilirubin 0.5 AST 51 H ALT 64 H Alkaline Phosphatase 49 Total Protein 7.7 Albumin 4.4 Globulin 3.3 Albumin/Globulin Ratio 1.3 Lipase 19 L TSH 2.97 Salicylates < 6.0 Acetaminophen < 10 L Ethyl Alcohol < 5.0 PD MEDICAL DECISION MAKING - ED course Complexity details: reviewed results, re-evaluated patient, considered d ifferential, d/w patient ED course: Patient feels much better after Ativan. Social work was consulted. There are no beds available in the region today. Patient is able to contract for safety. We will prescribe a small amount of medication for home. He will follow up with the DCR tomorrow and the next day. He slept for several hours in the emergency department. Patient counseled regarding signs and symptoms for which I believe and urgent re-evaluation would be necessary. Patient with good understanding of and agreement to plan and is comfortable going home at this time This document was made in part using voice recognition software. While efforts are made to proofread this document, sound alike and grammatical errors may occur. Departure - Departure Disposition: Home, Self Care Clinical Impression: Anxiety attack, Depressive disorder, Anxiety Condition: Good Instructions: ED Depression, ED Panic Attack Follow-Up: your,doctor on Saturday [Other] Prescriptions: LORazepam [Ativan] 1 mg PO BID PRN #7 tablet PRN Reason: anxiety Comments: Please follow-up with your doctor next week. The DCR will call and check in with you this weekend. Your prescription was sent to [facility] in [place]. Return if you worsen. Crisis Line and is available to talk to someone [email or web address] is also available to chat with someone online if you prefer. There are also many resources on this website and apps for your phone to help with your mental health You can also text the word START to [phone] to chat with someome via text. Discharge Date/Time: 03/17/21 17:10
[2021-03-17] MEDS ORDERED: LORazepam 1 MG TABLET PO STA (11:20)
[2021-03-17 11:41] LABS: BASOPHILS % (AUTO) 0.3 %; HCT - HEMATOCRIT 46.7 % (42.0-52.0); HGB - HEMOGLOBIN 15.5 g/dL (14.0-18.0); LYMPHOCYTES # (AUTO) 1.2 10^3/uL (1.5-3.5); LYMPHOCYTES % (AUTO) 19.2 %; MEAN CORPUSCULAR HGB CONC 33.2 g/dL (32.0-36.0); MEAN CORPUSCULAR VOLUME 84.4 fL (80.0-94.0); MONOCYTES # (AUTO) 0.5 10^3/uL (0.0-1.0); MONOCYTES % (AUTO) 7.1 %; NEUTROPHILS # (AUTO) 4.7 10^3/uL (1.5-6.6); NEUTROPHILS % (AUTO) 73.1 %; PLT - PLATELET COUNT 200 10^3/uL (130-450); RED BLOOD COUNT 5.53 10^6/uL (4.70-6.10); RED CELL DISTRIBUTION WIDTH 13.2 % (12.0-15.0); WHITE BLOOD COUNT 6.5 x10^3/uL (4.8-10.8)
[2021-03-17 11:57] LABS: ACETAMINOPHEN < 10 ug/mL (10-30); ALBUMIN 4.4 g/dL (3.2-5.5); ALBUMIN/GLOBULIN RATIO 1.3 (1.0-2.2); ALKALINE PHOSPHATASE 49 IU/L (42-121); ALT ALANINE AMINOTRANSFERASE 64 IU/L (10-60); AST ASPARTATE AMINOTRANSFERASE 51 IU/L (10-42); BILIRUBIN,TOTAL 0.5 mg/dL (0.2-1.0); BUN - BLOOD UREA NITROGEN 17 mg/dL (6-20); CALCIUM 8.7 mg/dL (8.5-10.3); CARBON DIOXIDE - CO2 26 mmol/L (21-32); CHLORIDE 95 mmol/L (101-111); CREATININE 0.7 mg/dL (0.6-1.2); ETOH - ETHANOL < 5.0 mg/dL; GFR - MDRD 123 (>89); GLUCOSE 117 mg/dL (70-100); LIPASE 19 U/L (22-51); POTASSIUM 3.9 mmol/L (3.5-5.0); SALICYLATE < 6.0 mg/dL; SODIUM 133 mmol/L (135-145); TOTAL PROTEIN 7.7 g/dL (6.7-8.2)
[2021-03-17 15:26] VITALS: BP 146/101
[2021-03-17 17:12] LABS: MUDS CUTOFF CONCENTRATIONS CUTOFF CONC BELOW:
[2021-03-17 17:15] LABS: BILIRUBIN,URINE NEGATIVE (NEGATIVE); CLARITY,URINE CLEAR (CLEAR); GLUCOSE, URINE (UA) NEGATIVE (NEGATIVE); KETONES,URINE (UA) NEGATIVE (NEGATIVE); LEUKOCYTE ESTERASE, URINE NEGATIVE (NEGATIVE); NITRITE,URINE NEGATIVE (NEGATIVE); OCCULT BLOOD,URINE NEGATIVE (NEGATIVE); PH,URINE 6.5 PH (5.0-7.5); PROTEIN,URINE NEGATIVE (NEGATIVE); UROBILINOGEN,URINE 0.2 (NORMAL) E.U./dL (NORMAL)
[2021-03-17 17:24] LABS: AMPHETAMINE SCREEN,URINE NEGATIVE (NEGATIVE); BARBITURATE SCREEN,UR NEGATIVE (NEGATIVE); BENZODIAZEPINES SCREEN, URINE NEGATIVE (NEGATIVE); COCAINE SCREEN URINE NEGATIVE (NEGATIVE); METHADONE SCREEN, URINE NEGATIVE (NEGATIVE); METHAMPHETAMINES SCREEN, URINE NEGATIVE (NEGATIVE); OPIATE SCREEN, URINE NEGATIVE (NEGATIVE); OXYCODONE SCREEN, URINE NEGATIVE (NEGATIVE); PROPOXYPHENE SCREEN, URINE NEGATIVE (NEGATIVE); THC CANNABINOID SCREEN, URINE NEGATIVE (NEGATIVE); TRICYCLIC ANTIDEPRESSANT,URINE NEGATIVE (NEGATIVE)
== END 2021-03-17 17:10 | disposition home or self-care (01) ==
LOC: ED 10:25
DX: F41.1 Generalized anxiety disorder (principal); F32.9 Major depressive disorder, single episode, unspecified
CPT/HCPCS: 36415; 80053; 80306; 80307; 80320; 80329; 81003; 83690; 84443; 85025; 99283; J8499; 81001; 87086

== ENCOUNTER 2021-03-22 13:25 | Outpatient (CLI) | payer BC | END 2021-03-22 13:26 | disposition critical access hospital (66) | LOC: EMS 13:25 | DX: U07.1 COVID-19 (principal) | CPT/HCPCS: A0425; A0429 ==

== ENCOUNTER 2021-03-22 13:42 | Inpatient (IN) | payer BC ==
--- NOTE | 2021-03-22 14:01 | ED Physician Documentation ---
History of Present Illness - Stated complaint Stated Complaint: SOA C+ - Additonal information Additional information: 45-year-old male brought to the emergency department for evaluation of Covid symptoms. He reports that 11 days ago he began having fevers body aches and chills. He was seen on 15 March in this emergency department and did test positive for Covid. He has had a subsequent mental health evaluation visit on the . This gentleman reports that he has been feeling achy with nausea but no vomiting. No diarrhea. He does have a history of requiring Suboxone and has not taken for nearly a week because he has not felt well. He is not vaccinated for COVID-19. Unfortunately secondary to the duration of his symptoms which is now more than 10 days he is not a candidate for MAB/Regeneron therapy. Review of Systems Constitutional: reports: Fever, Chills, Myalgias, Fatigue Eyes: reports: Reviewed and negative Ears: reports: Reviewed and negative Nose: reports: Reviewed and negative Throat: reports: Dental pain / toothache Cardiac: denies: Chest pain / pressure, Palpitations, Pedal edema, Calf pain Respiratory: denies: Dyspnea, Cough, Hemoptysis, Wheezing GI: denies: Abdominal Pain, Nausea, Vomiting, Diarrhea : denies: Dysuria, Frequency, Hesitancy Skin: reports: Reviewed and negative Musculoskeletal: reports: Reviewed and negative PD PAST MEDICAL HISTORY - Past Medical History Cardiovascular: None Respiratory: None Neuro: None Endocrine/Autoimmune: None GI: GERD : None, Kidney stones HEENT: None Psych: Depression, Anxiety, Post traumatic stress disorder Musculoskeletal: None, Chronic back pain Derm: None - Past Surgical History Past Surgical History: Yes Ortho: Other - Present Medications Home Medications: Ambulatory Orders Medication Instructions Recorded Confirmed Albuterol Sulf [Ventolin Hfa 2 - 3 puffs INH Q4HR PRN #1 inhaler 03/15/21 03/22/21 Inhaler] Buprenorphine HCl/Naloxone HCl 3 tab PO DAILY 03/22/21 [Suboxone 8-2 mg Tab] - Allergies Allergies/Adverse Reactions: Allergies Allergy/AdvReac Type Severity Reaction Status Date / Time No Known Drug Allergies Allergy Verified 03/22/21 14:12 - Social History Does the pt smoke?: No Smoking Status: Never smoker Does the pt drink ETOH?: No Does the pt have substance abuse?: No - Immunizations Immunizations are current?: Yes - POLST Patient has POLST: No PD ED PE EXPANDED - General General: Alert, No acute distress, Well developed/nourished - HEENT HEENT: Atraumatic, Head injury, PERRL - Cardiac Cardiac: Regular Rate, Radial strong equal, Cap refill < 2 sec, Prolonged cap r efill - Respiratory Respiratory: Wheezing, Other (mild tachypnea). No: Distress, Labored - Abdomen Abdomen: Normal Bowel sounds - Derm Derm: Normal color, Warm and dry. No: Rash - Extremities Extremities: Normal. No: Tenderness - Neuro Neuro: CNII-XII intact - GCS Eye Opening: Spontaneous Motor: Obeys Commands Verbal: Oriented Total: 15 - Psych Psych: Normal Results - Vitals Vitals: Vital Signs - 24 hr 03/22/21 03/22/21 03/22/21 14:14 15:08 15:19 Temperature 37 C Heart Rate 107 H 115 H 140 H Respiratory 20 22 Rate Blood Pressure 138/113 H O2 Saturation 94 90 L Oxygen O2 Source Room air - Labs Labs: Laboratory Tests 03/22/21 03/22/21 03/22/21 14:15 14:35 14:35 WBC 5.7 RBC 6.02 Hgb 16.6 Hct 49.1 MCV 81.6 MCH 27.6 MCHC 33.8 RDW 12.6 Plt Count 200 MPV 9.8 Neut # (Auto) 3.9 Lymph # (Auto) 1.1 L [place] # (Auto) 0.7 Eos # (Auto) 0.0 Baso # (Auto) 0.0 Absolute Nucleated RBC 0.00 Nucleated RBC % 0.0 Sodium 129 L Potassium 3.6 Chloride 92 L Carbon Dioxide 23 Anion Gap 14.0 H BUN 12 Creatinine 0.7 Estimated GFR (MDRD) 123 Glucose 140 H Calcium 8.8 Total Bilirubin 1.0 AST 28 ALT 37 Alkaline Phosphatase 58 Total Protein 7.9 Albumin 3.9 Globulin 4.0 Albumin/Globulin Ratio 1.0 Lipase 22 Nasal Adenovirus (PCR) NOT DETECTED Nasal B. parapertussis DNA (PCR) NOT DETECTED Nasal Coronavir 229E PCR NOT DETECTED Nasal Coronavir HKU1 PCR NOT DETECTED Nasal Coronavir NL63 PCR NOT DETECTED Nasal Coronavir OC43 PCR NOT DETECTED Nasal Enterovir/Rhinovir PCR NOT DETECTED Nasal Influenza B PCR NOT DETECTED Nasal Influenza A PCR NOT DETECTED Nasal Parainfluen 1 PCR NOT DETECTED Nasal Parainfluen 2 PCR NOT DETECTED Nasal Parainfluen 3 PCR NOT DETECTED Nasal Parainfluen 4 PCR NOT DETECTED Nasal RSV (PCR) NOT DETECTED Nasal B.pertussis DNA PCR NOT DETECTED Nasal C.pneumoniae (PCR) NOT DETECTED Jose Human Metapneumo PCR NOT DETECTED Nasal M.pneumoniae (PCR) NOT DETECTED Nasal SARS-CoV-2 (PCR) DETECTED A - Rads (name of study) CXR Radiology: Final report received (Streaky bibasilar opacities, new compared to prior exam. While this could represent atelectasis, developing pneumonia should be considered.) PD MEDICAL DECISION MAKING - ED course Complexity details: reviewed results, d/w patient ED course: 45-year-old male presents the emergency department for evaluation of generalized weakness myalgias and subjective fevers at home. Symptoms began 11 days ago when he tested positive for COVID-19 on the . Patient reports that he feels very weak and dehydrated. For EMS he was noted to be about 90% on room air and was placed on 2 L nasal cannula. However on presentation to the ER his initial saturations were 92 to 94% on room air. With ambulation however he did desaturate to 90% with heart rate in the 140s. He is noted to be modestly wheezy throughout all his lung garcia. Chest x-ray does show bilateral basilar opacities which is new from his most recent x-ray 1 week ago. Given the new hypoxia and tachypnea in the setting of a history of COVID-19 this gentleman will be admitted to the hospital for further evaluation and treatment of this. I have ordered 6 mg of Decadron as well as azithromycin and ceftriaxone. Dr. Kleinf graciously agrees to admit the patient. Departure - Departure Disposition: 66 [facility] DC/Xfer Clinical Impression: Hypoxia, COVID-19 Pneumonia Qualifiers: Pneumonia type: due to unspecified organism Laterality: bilateral Lung location: unspecified part of lung Qualified Code(s): J18.9 - Pneumonia, unspecified organism
--- NOTE | 2021-03-22 14:12 | XRAY Report ---
PROCEDURE: Chest 1 View X-Ray INDICATIONS: chest pain TECHNIQUE: One view of the chest was acquired. COMPARISON: Chest x-ray 03/15/2021 FINDINGS: Surgical changes and devices: None. Lungs and pleura: Streaky bibasilar opacities, new compared to prior exam. Mediastinum: Mediastinal contours appear normal. Heart size is enlarged. Bones and chest wall: No suspicious bony lesions. Overlying soft tissues appear unremarkable. IMPRESSION: Streaky bibasilar opacities, new compared to prior exam. While this could represent atelectasis, deve loping pneumonia should be considered. Reviewed by: Donna Sweeney MD on 03/22/2021 2:10 PM PDT Approved by: Donna Sweeney MD on 03/22/2021 2:10 PM PDT Station ID: [id number]
[2021-03-22] MEDS ORDERED: SODIUM CHLORIDE 0.9% 1,000 ML IV STA (14:25)
[2021-03-22] MEDS ORDERED: ALBUTEROL 1 PUFF INH STA (14:40)
[2021-03-22 14:45] LABS: BASOPHILS % (AUTO) 0.2 %; EOSINOPHILS % (AUTO) 0.2 %; HCT - HEMATOCRIT 49.1 % (42.0-52.0); HGB - HEMOGLOBIN 16.6 g/dL (14.0-18.0); LYMPHOCYTES # (AUTO) 1.1 10^3/uL (1.5-3.5); LYMPHOCYTES % (AUTO) 19.9 %; MEAN CORPUSCULAR HEMOGLOBIN 27.6 pg (27.0-31.0); MEAN CORPUSCULAR HGB CONC 33.8 g/dL (32.0-36.0); MEAN CORPUSCULAR VOLUME 81.6 fL (80.0-94.0); MEAN PLATELET VOLUME 9.8 fL (7.4-11.4); MONOCYTES # (AUTO) 0.7 10^3/uL (0.0-1.0); MONOCYTES % (AUTO) 12.2 %; NEUTROPHILS # (AUTO) 3.9 10^3/uL (1.5-6.6); NEUTROPHILS % (AUTO) 67.2 %; PLT - PLATELET COUNT 200 10^3/uL (130-450); RED BLOOD COUNT 6.02 10^6/uL (4.70-6.10); RED CELL DISTRIBUTION WIDTH 12.6 % (12.0-15.0); WHITE BLOOD COUNT 5.7 x10^3/uL (4.8-10.8)
[2021-03-22 14:57] LABS: ALBUMIN 3.9 g/dL (3.2-5.5); CALCIUM 8.8 mg/dL (8.5-10.3); CREATININE 0.7 mg/dL (0.6-1.2); POTASSIUM 3.6 mmol/L (3.5-5.0); TOTAL PROTEIN 7.9 g/dL (6.7-8.2)
[2021-03-22 15:15] LABS: CORONAVIRUS 229E-RESP PCR NOT DETECTED; CORONAVIRUS HKU1-RESP PCR NOT DETECTED; CORONAVIRUS NL63-RESP PCR NOT DETECTED; CORONAVIRUS OC43-RESP PCR NOT DETECTED
[2021-03-22 15:16] LABS: B. PARAPERTUSSIS- RESP PCR PAN NOT DETECTED; B. PERTUSSIS- RESP PCR PANEL NOT DETECTED; C. PNEUMONIAE- RESP PCR PANEL NOT DETECTED; HUMAN METAPNEUMOVIRUS NOT DETECTED; INFLUENZA A- RESP PCR PANEL NOT DETECTED; INFLUENZA B - RESP PCR PANEL NOT DETECTED; M. PNEUMONIAE- RESP PCR PANEL NOT DETECTED; PARAINFLUENZA VIRUS 1 NOT DETECTED; PARAINFLUENZA VIRUS 2 NOT DETECTED; PARAINFLUENZA VIRUS 3 NOT DETECTED; PARAINFLUENZA VIRUS 4 NOT DETECTED; RHINOVIRUS/ENTEROVIRUS NOT DETECTED; RSV- RESP PCR PANEL NOT DETECTED; SARS-CoV-2 -RESP PCR PANEL DETECTED
[2021-03-22] MEDS ORDERED: AZITHROMYCIN INJ 500 MG in SODIUM CHLORIDE 0.9% 250 ML IV STA (15:19)
[2021-03-22] MEDS ORDERED: cefTRIAXone 1 GM in SODIUM CHLORIDE 0.9% MINIBAG 100 ML IV STA (15:20)
[2021-03-22] MEDS ORDERED: DEXAMETHASONE 10 MG/ML VIAL IV STA (15:20)
[2021-03-22] MEDS ORDERED: ONDANSETRON 4 MG/2 ML VIAL IVP PRN (15:55)
[2021-03-22] MEDS ORDERED: ONDANSETRON ODT 4 MG TABLET TL PRN (15:55)
[2021-03-22] MEDS ORDERED: SODIUM CHLORIDE FLUSH 0.9% 10 ML SYRINGE IVP PRN (15:55)
--- NOTE | 2021-03-22 17:00 | HISTORY & PHYSICAL EXAMINATION ---
Chief Complaint - Chief Complaint Chief Complaint: Shortness of breath History of Present Illness - Admitted From Admitted From:: Home - History Obtained From Records Reviewed: Yes History obtained from: Patient, ER Provider, EMR - History of Present Illness HPI Comment/Other: This is a 45-year-old male with a past medical history significant for chronic back pain for which he takes Suboxone who presents today with worsening shortness of breath. He states he has felt sick for about 10 days now and was diagnosed with Covid about 1 week ago. He was seen in the emergency department and was discharged home. At that time, his chest x-ray was unremarkable. He states he has had some good days and bad days since then but last night he felt so short of breath that he thought he was going to . This caused him to come in for evaluation today. He states he had a poor appetite with decreased intake over the past few days. He complains of fevers, chills, malaise and a productive cough of clear sputum. He states he has been so sick he has not taken his Suboxone for nearly 1 week now due to his poor appetite. He is not vaccinated. In the emergency department, he was noted to be hypoxic with saturations of 90% on room air. His chest x-ray was now concerning for a developing infiltrate. Given this, medicine was consulted for admission. History - Past Medical History Cardiovascular: reports: None Respiratory: reports: None Neuro: reports: None Endocrine/Autoimmune: reports: None GI: reports: GERD : reports: None, Kidney stones HEENT: reports: None Psych: reports: Depression, Anxiety, Post traumatic stress disorder Musculoskeletal: reports: None, Chronic back pain Derm: reports: None MRSA Hx?: No - Family & Social History Family History Comment/Other: He reports no significant family history. His parents and siblings are relatively healthy. Living arrangement: At home Living Situation: With family Social History Notes: He lives at home with 2 children. He stopped alcohol about 6 years ago. He is a previous smoker. 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 - POLST Patient has POLST: No Meds/Allgy - Home Medications Home Medications: Ambulatory Orders Medication Instructions Recorded Confirmed Albuterol Sulf [Ventolin Hfa 2 - 3 puffs INH Q4HR PRN #1 inhaler 03/15/21 03/22/21 Inhaler] Buprenorphine HCl/Naloxone HCl 3 tab PO DAILY 03/22/21 [Suboxone 8-2 mg Tab] - Allergies Allergies/Adverse Reactions: Allergies Allergy/AdvReac Type Severity Reaction Status Date / Time No Known Drug Allergies Allergy Verified 03/22/21 14:12 Review of Systems - Constitutional Constitutional: reports: Fatigue, Fever, Chills, Malaise, Weakness, Poor appetite - Cardiovascular Cariovascular: reports: Chest pain. denies: Edema, Lightheadedness, Exertional dyspnea, Decr. exercise tolerance - Respiratory Respiratory: reports: Cough, Sputum production, SOB at rest, SOB with exertion - Gastrointestinal Gastrointestinal: reports: Nausea. denies: Abdominal pain, Diarrhea, Change in bowel habits, Bloody stools, Vomiting - Genitourinary Genitourinary: denies: Dysuria, Frequency - Musculoskeletal Musculoskeletal: reports: Back pain - Integumentary Integumentary: denies: Rash - Neurological Neurological: reports: General weakness. denies: Focal weakness, Dizziness - All Other Systems All Other Systems: reports: Reviewed and negative Prior Level of Functionality: He is independent with his ADLs. Exam - Vital Signs Reviewed Vital Signs: Yes Vital Signs: Vital Signs x48h Temp Pulse Resp BP Pulse Ox 03/22/21 16:17 108 H 20 131/87 H 91 L 03/22/21 15:19 140 H 90 L 03/22/21 15:08 115 H 22 03/22/21 14:14 37 C 107 H 20 138/113 H 94 - Physical Exam General Appearance: positive: No acute distress, Alert Eyes Bilateral: positive: Normal inspection, Conjunctivae nml ENT: positive: ENT inspection nml Neck: positive: Nml inspection Respiratory: positive: No respiratory distress, Rhonchi Cardiovascular: positive: Tachycardia. negative: Irregularly irregular, Bradycardia Abdomen: positive: Non-tender, No distention. negative: Tenderness Skin: positive: Warm, Dry Extremities: positive: No pedal edema. negative: Pedal edema, Calf tenderness Neurologic/Psychiatric: positive: Motor nml. negative: Disoriented to person, Disoriented to place, Disoriented to time Conclusion/Plan - Problem List (1) Pneumonia due to COVID-19 virus Conclusion/Plan: He has pneumonia secondary to COVID-19 and is now hypoxic with saturations ranging from 90 to 92% on room air. He is unvaccinated. Given his abnormal x- ray, he will be admitted for further management. We will continue him on ceftriaxone and azithromycin given developing infiltrate and this could be bacterial. We will also place him on Decadron and remdesivir. Continue contact precautions. Continue supplemental oxygen for goal saturation greater than 92%. (2) Chronic back pain Conclusion/Plan: He has chronic back pain for which he takes Suboxone. We will resume this once the dose is confirmed by pharmacy. - Lab Results Lab results reviewed: Yes Fish Bones: 03/22/21 14:35 03/22/21 14:35 - Diagnostic Imaging Results Diagnostic Imaging Results: positive: Final report reviewed Core Measures - Anticipated LOS I expect patient to be DC'd or transferred within 96 hours.: Yes - Issues Hospital Issues and Management Plan: 45-year-old male who is unvaccinated against COVID-19 presents with shortness of breath found to have COVID-19 pneumonia. He will be admitted for IV antibiotics, remdesivir, Decadron. - DVT/VTE - Prophylaxis VTE/DVT Device ordered at admit?: Yes VTE/DVT Prophylaxis med ordered at admit?: Yes
[2021-03-22] MEDS: SODIUM CHLORIDE FLUSH 0.9% 10 ML SYRINGE IVP SCH (17:54)
[2021-03-22] MEDS: SODIUM CHLORIDE 0.9% 1,000 ML IV SCH (17:54)
[2021-03-22] MEDS: INSULIN ASPART 300 UNIT/3 ML PEN SUBQ SCH ×2 (18:00→22:31)
[2021-03-22] MEDS ORDERED: REMDESIVIR 100MG VIAL 200 MG in SODIUM CHLORIDE 0.9% 250 ML IV ONE (18:00)
[2021-03-23] MEDS: SODIUM CHLORIDE FLUSH 0.9% 10 ML SYRINGE IVP SCH ×3 (02:53→16:50)
[2021-03-23] MEDS: SODIUM CHLORIDE 0.9% 1,000 ML IV SCH (02:53)
[2021-03-23 05:17] LABS: BASOPHILS % (AUTO) 0.3 %; HCT - HEMATOCRIT 46.3 % (42.0-52.0); HGB - HEMOGLOBIN 15.3 g/dL (14.0-18.0); LYMPHOCYTES % (AUTO) 24.1 %; MEAN CORPUSCULAR HEMOGLOBIN 27.5 pg (27.0-31.0); MEAN CORPUSCULAR VOLUME 83.1 fL (80.0-94.0); MEAN PLATELET VOLUME 9.9 fL (7.4-11.4); NEUTROPHILS % (AUTO) 62.9 %; PLT - PLATELET COUNT 206 10^3/uL (130-450); RED BLOOD COUNT 5.57 10^6/uL (4.70-6.10); RED CELL DISTRIBUTION WIDTH 12.9 % (12.0-15.0); WHITE BLOOD COUNT 2.9 x10^3/uL (4.8-10.8)
[2021-03-23 05:20] LABS: ABNORMAL LYMPHS % (MANUAL) 0 %; BAND NEUTROPHILS % (MANUAL) 0 %
[2021-03-23 05:22] LABS: ALBUMIN 3.8 g/dL (3.2-5.5); BILIRUBIN,DIRECT 0.1 mg/dL (0.1-0.5); BILIRUBIN,TOTAL 0.5 mg/dL (0.2-1.0); CALCIUM 8.2 mg/dL (8.5-10.3); CREATININE 0.8 mg/dL (0.6-1.2); TOTAL PROTEIN 7.4 g/dL (6.7-8.2)
[2021-03-23 05:45] LABS: LYMPHOCYTES # (MANUAL) 0.6 10^3/uL (1.5-3.5); LYMPHOCYTES % (MANUAL) 20 %; MONOCYTES # (MANUAL) 0.3 10^3/uL (0.0-1.0)
[2021-03-23 05:46] LABS: DIFFERENTIAL COMMENT MANUAL DIFFERENTIAL; PLATELET ESTIMATE, MANUAL NORMAL (130-450,000) (NORMAL); RBC MORPHOLOGY (MULTIPLE) NORMAL APPEARANCE (NORMAL)
[2021-03-23] MEDS: INSULIN ASPART 300 UNIT/3 ML PEN SUBQ SCH ×4 (08:00→21:29)
[2021-03-23] MEDS: DEXAMETHASONE 10 MG/ML VIAL IVP SCH (09:27)
[2021-03-23] MEDS: AZITHROMYCIN INJ 500 MG in SODIUM CHLORIDE 0.9% 250 ML IV SCH (09:28)
[2021-03-23] MEDS: cefTRIAXone 1 GM in SODIUM CHLORIDE 0.9% MINIBAG 100 ML IV SCH (09:30)
[2021-03-23] MEDS: REMDESIVIR 100MG VIAL 100 MG in SODIUM CHLORIDE 0.9% 100ML 100 ML IV SCH (09:31)
[2021-03-23] MEDS: ENOXAPARIN 40 MG/0.4 ML SYRINGE SUBQ SCH (09:31)
[2021-03-23] MEDS: ALBUTEROL 1 PUFF INH PRN (09:56)
--- NOTE | 2021-03-23 10:58 | PHARMACY PROGRESS NOTE ---
- Best Possible Medication History Admit Date and Time: 03/22/21 1555 Processed by: Pharmacy Medication History completed: Yes Patient Interview: Pt unable to participate Secondary Source(s): Insurance records As the person ultimately responsible for medication therapy, providers are able to order a medication from an existing home medication list in [facility] via the "Reconcile Routine" prior to Confirmation of that medication by business support. Such practice is discouraged except when the physician, in their clinical judgment, deems that a medical need exists for a medication without regard to previous use.
[2021-03-23] MEDS: ACETAMINOPHEN 325 MG TABLET PO PRN ×2 (12:04→21:30)
--- NOTE | 2021-03-23 13:49 | PROVIDER PROGRESS NOTE ---
Subjective - Prog Note Date Prog Note Date: 03/23/21 - Subjective Subjective: Still feels terrible overall. He is complaining of back pain today and he has not taken his Suboxone in over a week. Feels his appetite is increased. Continues have a productive cough. Current Medications - Current Medications Current Medications: Active Medications Acetaminophen (Acetaminophen 325 Mg Tablet) 650 mg PO Q4HR PRN PRN Reason: Pain 1 to 4 Last Admin: 03/23/21 12:04 Dose: 650 mg Documented by: Albuterol (Albuterol 1 Puff) 2 puffs INH RTQ4H PRN PRN Reason: Shortness of Air/Wheezing Last Admin: 03/23/21 09:56 Dose: 2 puffs Documented by: Dexamethasone (Dexamethasone 10 Mg/Ml Vial) 6 mg IVP DAILY [facility] Stop: 04/01/21 08:59 Last Admin: 03/23/21 09:27 Dose: 6 mg Documented by: Enoxaparin Sodium (Enoxaparin 40 Mg/0.4 Ml Syringe) 40 mg SUBQ DAILY [facility] Last Admin: 03/23/21 09:31 Dose: 40 mg Documented by: Azithromycin 500 mg/ Sodium (Chloride) 250 mls @ 250 mls/hr IV DAILY [facility] Stop: 03/24/21 09:59 Last Infusion: 03/23/21 10:30 Dose: Infused Documented by: Ceftriaxone Sodium 1 gm/ (Sodium Chloride) 100 mls @ 200 mls/hr IV DAILY [facility] Stop: 03/26/21 09:29 Last Infusion: 03/23/21 10:00 Dose: Infused Documented by: Remdesivir 100 mg/ Sodium (Chloride) 100 mls @ 200 mls/hr IV DAILY [facility] Stop: 03/26/21 09:29 Last Infusion: 03/23/21 10:30 Dose: Infused Documented by: Insulin Aspart (Insulin Aspart 300 Unit/3 Ml Pen) 1 - 9 unit SUBQ 0800,1200,1700,2100 [facility]; Protocol Last Admin: 03/23/21 11:50 Dose: 3 unit Documented by: Ondansetron HCl (Ondansetron Odt 4 Mg Tablet) 4 mg TL Q6HR PRN PRN Reason: Nausea / Vomiting Ondansetron HCl (Ondansetron 4 Mg/2 Ml Vial) 4 mg IVP Q6HR PRN PRN Reason: Nausea / Vomiting Sodium Chloride (Sodium Chloride Flush 0.9% 10 Ml Syringe) 10 ml IVP PRN PRN PRN Reason: NEEDED PER PROVIDER ORDERS Sodium Chloride (Sodium Chloride Flush 0.9% 10 Ml Syringe) 10 ml IVP 0100,0900,1700 [facility] Last Admin: 03/23/21 09:34 Dose: 10 ml Documented by: Buprenorphine HCl/Naloxone HCl [Buprenorphine-Nalox 8-2Mg Film] 3 film SL DAILY 03/23/21 Objective - Vital Signs/Intake & Output Reviewed Vital Signs: Yes Vital Signs: Vital Signs x48h Pulse Pulse Resp BP Pulse Ox 03/23/21 10:30 96 22 137/92 H 93 03/23/21 09:56 90 14 Intake & Output: Intake & Output 03/20/21 03/21/21 03/22/21 03/23/21 23:59 23:59 23:59 23:59 Intake Total 1350 2450 Output Total 850 750 Balance 500 1700 - Objective General Appearance: positive: Alert, Other (Appears ill and uncomfortable) Eyes Bilateral: positive: Conjunctivae nml ENT: positive: ENT inspection nml Neck: positive: Nml inspection Respiratory: positive: No respiratory distress, Rhonchi. negative: Wheezes Cardiovascular: positive: Tachycardia. negative: Irregularly irregular, Systolic murmur Abdomen: positive: Non-tender, No distention. negative: Tenderness Skin: positive: Warm, Dry Extremities: positive: No pedal edema Neurologic/Psychiatric: positive: Motor nml. negative: Disoriented to person, Disoriented to place - Lab Results Fish Bones: 03/23/21 04:57 03/23/21 04:57 Other Labs: Lab Results x24hrs 03/23/21 03/23/21 03/22/21 Range/Units 04:57 04:57 14:35 WBC 2.9 L (4.8-10.8) x10^3/uL RBC 5.57 (4.70-6.10) 10^6/uL Hgb 15.3 (14.0-18.0) g/dL Hct 46.3 (42.0-52.0) % MCV 83.1 (80.0-94.0) fL MCH 27.5 (27.0-31.0) pg MCHC 33.0 (32.0-36.0) g/dL RDW 12.9 (12.0-15.0) % Plt Count 206 (130-450) 10^3/uL MPV 9.9 (7.4-11.4) fL Neut # (Auto) Not Reportable (1.5-6.6) 10^3/uL Lymph # (Auto) Not Reportable (1.5-3.5) 10^3/uL Pickett # (Auto) Not Reportable (0.0-1.0) 10^3/uL Eos # (Auto) Not Reportable (0.0-0.7) 10^3/uL Baso # (Auto) Not Reportable (0.0-0.1) 10^3/uL Absolute Nucleated RBC Not Reportable x10^3/uL Total Counted 100 Band Neuts % (Manual) 0 (0 - 10) % Abnorm Lymph % (Manual) 0 % Nucleated RBC % Not Reportable /100WBC Neutrophils # (Manual) 2.0 (1.5-6.6) 10^3/uL Lymphocytes # (Manual) 0.6 L (1.5-3.5) 10^3/uL Monocytes # (Manual) 0.3 (0.0-1.0) 10^3/uL Eosinophils # (Manual) 0.0 (0-0.7) 10^3/uL Basophils # (Manual) 0.0 (0-0.1) 10^3/uL Differential Comment MANUAL DIFFERENTIAL Platelet Estimate NORMAL (130-450,000) (NORMAL) RBC Morph Micro Appear NORMAL APPEARANCE (NORMAL) Sodium 135 129 L (135-145) mmol/L Potassium 4.0 3.6 (3.5-5.0) mmol/L Chloride 98 L 92 L (101-111) mmol/L Carbon Dioxide 26 23 (21-32) mmol/L Anion Gap 11.0 14.0 H (6-13) BUN 12 12 (6-20) mg/dL Creatinine 0.8 0.7 (0.6-1.2) mg/dL Estimated GFR (MDRD) 105 123 (>89) Glucose 131 H 140 H (70-100) mg/dL Calcium 8.2 L 8.8 (8.5-10.3) mg/dL Total Bilirubin 0.5 1.0 (0.2-1.0) mg/dL Direct Bilirubin 0.1 (0.1-0.5) mg/dL AST 25 28 (10-42) IU/L ALT 36 37 (10-60) IU/L Alkaline Phosphatase 51 58 (42-121) IU/L Total Protein 7.4 7.9 (6.7-8.2) g/dL Albumin 3.8 3.9 (3.2-5.5) g/dL Globulin 3.6 4.0 (2.1-4.2) g/dL Albumin/Globulin Ratio 1.0 (1.0-2.2) Lipase 22 (22-51) U/L Nasal Adenovirus (PCR) Nasal B. parapertussis DNA (PCR) Nasal Coronavir 229E PCR Nasal Coronavir HKU1 PCR Nasal Coronavir NL63 PCR Nasal Coronavir OC43 PCR Nasal Enterovir/Rhinovir PCR Nasal Influenza B PCR Nasal Influenza A PCR Nasal Parainfluen 1 PCR Nasal Parainfluen 2 PCR Nasal Parainfluen 3 PCR Nasal Parainfluen 4 PCR Nasal RSV (PCR) Nasal B.pertussis DNA PCR Nasal C.pneumoniae (PCR) Jose Human Metapneumo PCR Nasal M.pneumoniae (PCR) Nasal SARS-CoV-2 (PCR) 03/22/21 03/22/21 Range/Units 14:35 14:15 WBC 5.7 (4.8-10.8) x10^3/uL RBC 6.02 (4.70-6.10) 10^6/uL Hgb 16.6 (14.0-18.0) g/dL Hct 49.1 (42.0-52.0) % MCV 81.6 (80.0-94.0) fL MCH 27.6 (27.0-31.0) pg MCHC 33.8 (32.0-36.0) g/dL RDW 12.6 (12.0-15.0) % Plt Count 200 (130-450) 10^3/uL MPV 9.8 (7.4-11.4) fL Neut # (Auto) 3.9 (1.5-6.6) 10^3/uL Lymph # (Auto) 1.1 L (1.5-3.5) 10^3/uL Pickett # (Auto) 0.7 (0.0-1.0) 10^3/uL Eos # (Auto) 0.0 (0.0-0.7) 10^3/uL Baso # (Auto) 0.0 (0.0-0.1) 10^3/uL Absolute Nucleated RBC 0.00 x10^3/uL Total Counted Band Neuts % (Manual) (0 - 10) % Abnorm Lymph % (Manual) % Nucleated RBC % 0.0 /100WBC Neutrophils # (Manual) (1.5-6.6) 10^3/uL Lymphocytes # (Manual) (1.5-3.5) 10^3/uL Monocytes # (Manual) (0.0-1.0) 10^3/uL Eosinophils # (Manual) (0-0.7) 10^3/uL Basophils # (Manual) (0-0.1) 10^3/uL Differential Comment Platelet Estimate (NORMAL) RBC Morph Micro Appear (NORMAL) Sodium (135-145) mmol/L Potassium (3.5-5.0) mmol/L Chloride (101-111) mmol/L Carbon Dioxide (21-32) mmol/L Anion Gap (6-13) BUN (6-20) mg/dL Creatinine (0.6-1.2) mg/dL Estimated GFR (MDRD) (>89) Glucose (70-100) mg/dL Calcium (8.5-10.3) mg/dL Total Bilirubin (0.2-1.0) mg/dL Direct Bilirubin (0.1-0.5) mg/dL AST (10-42) IU/L ALT (10-60) IU/L Alkaline Phosphatase (42-121) IU/L Total Protein (6.7-8.2) g/dL Albumin (3.2-5.5) g/dL Globulin (2.1-4.2) g/dL Albumin/Globulin Ratio (1.0-2.2) Lipase (22-51) U/L Nasal Adenovirus (PCR) NOT DETECTED Nasal B. parapertussis DNA (PCR) NOT DETECTED Nasal Coronavir 229E PCR NOT DETECTED Nasal Coronavir HKU1 PCR NOT DETECTED Nasal Coronavir NL63 PCR NOT DETECTED Nasal Coronavir OC43 PCR NOT DETECTED Nasal Enterovir/Rhinovir PCR NOT DETECTED Nasal Influenza B PCR NOT DETECTED Nasal Influenza A PCR NOT DETECTED Nasal Parainfluen 1 PCR NOT DETECTED Nasal Parainfluen 2 PCR NOT DETECTED Nasal Parainfluen 3 PCR NOT DETECTED Nasal Parainfluen 4 PCR NOT DETECTED Nasal RSV (PCR) NOT DETECTED Nasal B.pertussis DNA PCR NOT DETECTED Nasal C.pneumoniae (PCR) NOT DETECTED Jose Human Metapneumo PCR NOT DETECTED Nasal M.pneumoniae (PCR) NOT DETECTED Nasal SARS-CoV-2 (PCR) DETECTED A ABX Reporting Has patient been on IV antibiotics over the past 48 hours?: Yes Assessment/Plan - Problem List (1) Pneumonia due to COVID-19 virus Impression: He is hypoxic requiring 2 L of oxygen to maintain his saturations. Given his ongoing hypoxia, he remain hospitalized. We will continue ceftriaxone azithromycin with today being day 2. Today's also day 2 of Decadron and remdesivir. Continue contact precautions. Continue supplemental oxygen for goal saturation greater than 92%. (2) Chronic back pain Impression: We have resumed his home Suboxone.
[2021-03-23] MEDS: BENZONATATE 100 MG CAPSULE PO PRN ×2 (16:49→21:30)
[2021-03-23] MEDS: BUPRENORPHINE/NALOXONE 8-2 MG TAB SL SCH ×2 (16:49→21:30)
[2021-03-23] MEDS: guaiFENesin 100 MG/5 ML UDC PO PRN (16:49)
[2021-03-24] MEDS: guaiFENesin 100 MG/5 ML UDC PO PRN ×2 (02:42→10:07)
[2021-03-24] MEDS: SODIUM CHLORIDE FLUSH 0.9% 10 ML SYRINGE IVP SCH ×4 (02:42→21:13)
[2021-03-24 05:11] LABS: BASOPHILS % (AUTO) 0.1 %; HCT - HEMATOCRIT 42.1 % (42.0-52.0); HGB - HEMOGLOBIN 13.8 g/dL (14.0-18.0); LYMPHOCYTES # (AUTO) 1.1 10^3/uL (1.5-3.5); LYMPHOCYTES % (AUTO) 12.9 %; MEAN CORPUSCULAR HEMOGLOBIN 27.4 pg (27.0-31.0); MEAN CORPUSCULAR HGB CONC 32.8 g/dL (32.0-36.0); MEAN CORPUSCULAR VOLUME 83.7 fL (80.0-94.0); MEAN PLATELET VOLUME 10.3 fL (7.4-11.4); MONOCYTES # (AUTO) 0.5 10^3/uL (0.0-1.0); MONOCYTES % (AUTO) 5.6 %; NEUTROPHILS # (AUTO) 6.9 10^3/uL (1.5-6.6); NEUTROPHILS % (AUTO) 80.9 %; PLT - PLATELET COUNT 241 10^3/uL (130-450); RED BLOOD COUNT 5.03 10^6/uL (4.70-6.10); WHITE BLOOD COUNT 8.5 x10^3/uL (4.8-10.8)
[2021-03-24 05:18] LABS: ALBUMIN 3.5 g/dL (3.2-5.5); BILIRUBIN,DIRECT 0.1 mg/dL (0.1-0.5); BILIRUBIN,TOTAL 0.4 mg/dL (0.2-1.0); CALCIUM 8.5 mg/dL (8.5-10.3); CREATININE 0.6 mg/dL (0.6-1.2); POTASSIUM 4.2 mmol/L (3.5-5.0); TOTAL PROTEIN 6.9 g/dL (6.7-8.2)
[2021-03-24] MEDS: BUPRENORPHINE/NALOXONE 8-2 MG TAB SL SCH ×3 (07:36→21:09)
[2021-03-24] MEDS: BENZONATATE 100 MG CAPSULE PO PRN (07:36)
[2021-03-24] MEDS: ACETAMINOPHEN 325 MG TABLET PO PRN (07:36)
[2021-03-24] MEDS ORDERED: BUPRENORPHINE/NALOXONE 8-2 MG TAB SL SCH (09:00)
[2021-03-24 09:43] LABS: ESTIMATED AVERAGE GLUCOSE 134 mg/dL (70-100); HEMOGLOBIN A1c% 6.3 % (4.27-6.07)
[2021-03-24] MEDS: INSULIN ASPART 300 UNIT/3 ML PEN SUBQ SCH ×4 (09:58→21:10)
[2021-03-24] MEDS: ALBUTEROL 1 PUFF INH PRN (09:58)
[2021-03-24] MEDS: cefTRIAXone 1 GM in SODIUM CHLORIDE 0.9% MINIBAG 100 ML IV SCH (10:01)
[2021-03-24] MEDS: DEXAMETHASONE 10 MG/ML VIAL IVP SCH (10:03)
[2021-03-24] MEDS: SACCHAROMYCES BOULARDII 250 MG CAPSULE PO SCH ×2 (10:06→17:18)
[2021-03-24] MEDS: ENOXAPARIN 40 MG/0.4 ML SYRINGE SUBQ SCH (10:07)
[2021-03-24] MEDS: REMDESIVIR 100MG VIAL 100 MG in SODIUM CHLORIDE 0.9% 100ML 100 ML IV SCH (10:45)
[2021-03-24] MEDS: AZITHROMYCIN INJ 500 MG in SODIUM CHLORIDE 0.9% 250 ML IV SCH (11:36)
--- NOTE | 2021-03-24 13:24 | PROVIDER PROGRESS NOTE ---
Assessment/Plan - Problem List (1) Pneumonia due to COVID-19 virus Assessment/Plan: Patient still show respiratory distress, patient still required oxygen to support his oxygen saturation. We will continue treatment for COVID-19 with Decadron and remdesivir, Continue supplemental oxygen as needed to remain 92% O2 sat or above, Continue antibiotics treatment, add probiotics (2) Chronic back pain Impression: Stable, continue home Suboxone - Current Meds Current Meds: Current Medications Generic Name Dose Route Start Last Admin Trade Name Freq PRN Reason Stop Dose Admin Acetaminophen 650 mg 03/22/21 15:55 03/24/21 07:36 Acetaminophen 325 Mg Tablet PO 650 mg Q4HR PRN Administration Pain 1 to 4 Albuterol 2 puffs 03/23/21 09:54 03/24/21 09:58 Albuterol 1 Puff INH 2 puffs RTQ4H PRN Administration Shortness of Air/Wheezing Benzonatate 100 mg 03/23/21 15:05 03/24/21 07:36 Benzonatate 100 Mg Capsule PO 100 mg TID PRN Administration Cough Buprenorphine HCl 1 tab 03/23/21 16:00 03/24/21 07:36 Buprenorphine/Naloxone 8-2 Mg Tab SL 1 tab TID [facility]ON Administration Dexamethasone 6 mg 03/23/21 09:00 03/24/21 10:03 Dexamethasone 10 Mg/Ml Vial IVP 04/01/21 08:59 6 mg DAILY [facility] Administration Enoxaparin Sodium 40 mg 03/23/21 09:00 03/24/21 10:07 Enoxaparin 40 Mg/0.4 Ml Syringe SUBQ 40 mg DAILY [facility] Administration Guaifenesin 100 mg 03/23/21 15:05 03/24/21 10:07 Guaifenesin 100 Mg/5 Ml Udc PO 100 mg Q6HR PRN Administration Cough Ceftriaxone Sodium 1 gm/ 100 mls @ 200 mls/hr 03/23/21 09:00 03/24/21 10:44 Sodium Chloride IV 03/26/21 09:29 Infused DAILY [facility] Infusion Remdesivir 100 mg/ Sodium 100 mls @ 200 mls/hr 03/23/21 09:00 03/24/21 11:41 Chloride IV 03/26/21 09:29 Infused DAILY [facility] Infusion Insulin Aspart 1 - 9 unit 03/22/21 17:00 03/24/21 11:39 Insulin Aspart 300 Unit/3 Ml Pen SUBQ 1 unit 0800,1200,1700,2100 [facility] Administration Protocol Saccharomyces Boulardii 250 mg 03/24/21 08:00 03/24/21 10:06 Saccharomyces Boulardii 250 Mg Capsule PO 250 mg BIDWM RAMON Administration Sodium Chloride 10 ml 03/22/21 17:00 03/24/21 10:03 Sodium Chloride Flush 0.9% 10 Ml Syringe IVP 10 ml 0100,0900,1700 [facility] Administration - Lab Result Fish Bone Diagrams: 03/24/21 04:18 03/24/21 04:18 - Additional Planning My Orders: My Active Orders 03/24/21 08:00 Saccharomyces Boulardii [Florastor] 250 mg PO BIDWM Subjective - Subjective Patient Reports: Feeling Better Objective Vital Signs: Vital Signs - 24 hr 03/23/21 03/23/21 03/23/21 14:00 16:53 19:50 Temperature 36.6 C 36.4 C L Heart Rate 75 Heart Rate [ 85 79 Brachial] Respiratory 20 18 20 Rate Blood Pressure [Left Brachial artery] Blood Pressure 123/79 131/92 H [Right Brachial artery] O2 Saturation 94 95 03/23/21 03/24/21 03/24/21 21:00 01:00 05:00 Temperature 36.6 C 36.5 C 36.4 C L Heart Rate Heart Rate [ 71 61 66 Brachial] Respiratory 20 20 18 Rate Blood Pressure [Left Brachial artery] Blood Pressure 134/81 H 142/90 H 135/89 H [Right Brachial artery] O2 Saturation 95 97 95 03/24/21 03/24/21 03/24/21 09:00 09:45 11:37 Temperature 36.3 C L 36.3 C L Heart Rate 96 Heart Rate [ 81 79 Brachial] Respiratory 19 22 20 Rate Blood Pressure 134/91 H 128/64 [Left Brachial artery] Blood Pressure [Right Brachial artery] O2 Saturation 94 94 Oxygen O2 Source Nasal cannula I&O (Last 24 Hrs): Intake and Output Totals x24h 03/22/21 03/23/21 03/24/21 23:59 23:59 23:59 Intake Total 1600 3350 1720 Output Total 850 750 Balance 750 2600 1720 General: Alert, Oriented x3, Cooperative, Mild distress HEENT: Atraumatic, PERRLA Neck: Supple Lymphatic: no adenopathy Neuro: Alert, Non Focal, Oriented Times 3 Cardiovascular: Regular rate, Normal S1, Normal S2 Respiratory: Chest non-tender, Other Abdomen: Normal bowel sounds, Soft Extremities: Normal pulses - Results Results: Laboratory Results WBC 8.5 x10^3/uL (4.8-10.8) 03/24/21 04:18 RBC 5.03 10^6/uL (4.70-6.10) 03/24/21 04:18 Hgb 13.8 g/dL (14.0-18.0) L 03/24/21 04:18 Hct 42.1 % (42.0-52.0) 03/24/21 04:18 MCV 83.7 fL (80.0-94.0) 03/24/21 04:18 MCH 27.4 pg (27.0-31.0) 03/24/21 04:18 MCHC 32.8 g/dL (32.0-36.0) 03/24/21 04:18 RDW 13.0 % (12.0-15.0) 03/24/21 04:18 Plt Count 241 10^3/uL (130-450) 03/24/21 04:18 MPV 10.3 fL (7.4-11.4) 03/24/21 04:18 Neut # (Auto) 6.9 10^3/uL (1.5-6.6) H 03/24/21 04:18 Lymph # (Auto) 1.1 10^3/uL (1.5-3.5) L 03/24/21 04:18 Dane # (Auto) 0.5 10^3/uL (0.0-1.0) 03/24/21 04:18 Eos # (Auto) 0.0 10^3/uL (0.0-0.7) 03/24/21 04:18 Baso # (Auto) 0.0 10^3/uL (0.0-0.1) 03/24/21 04:18 Absolute Nucleated RBC 0.00 x10^3/uL 03/24/21 04:18 Total Counted 100 03/23/21 04:57 Band Neuts % (Manual) 0 % (0-10) 03/23/21 04:57 Abnorm Lymph % (Manual) 0 % 03/23/21 04:57 Nucleated RBC % 0.0 /100WBC 03/24/21 04:18 Neutrophils # (Manual) 2.0 10^3/uL (1.5-6.6) 03/23/21 04:57 Lymphocytes # (Manual) 0.6 10^3/uL (1.5-3.5) L 03/23/21 04:57 Monocytes # (Manual) 0.3 10^3/uL (0.0-1.0) 03/23/21 04:57 Eosinophils # (Manual) 0.0 10^3/uL (0-0.7) 03/23/21 04:57 Basophils # (Manual) 0.0 10^3/uL (0-0.1) 03/23/21 04:57 Differential Comment MANUAL DIFFERENTIAL 03/23/21 04:57 Platelet Estimate NORMAL (130-450,000) (NORMAL) 03/23/21 04:57 RBC Morph Micro Appear NORMAL APPEARANCE (NORMAL) 03/23/21 04:57 Sodium 133 mmol/L (135-145) L 03/24/21 04:18 Potassium 4.2 mmol/L (3.5-5.0) 03/24/21 04:18 Chloride 99 mmol/L (101-111) L 03/24/21 04:18 Carbon Dioxide 26 mmol/L (21-32) 03/24/21 04:18 Anion Gap 8.0 (6-13) 03/24/21 04:18 BUN 15 mg/dL (6-20) 03/24/21 04:18 Creatinine 0.6 mg/dL (0.6-1.2) 03/24/21 04:18 Estimated GFR (MDRD) 146 (>89) 03/24/21 04:18 Glucose 150 mg/dL (70-100) H 03/24/21 04:18 Estimat Average Glucose 134 mg/dL (70-100) H 03/24/21 04:18 Hemoglobin A1c % 6.3 % (4.27-6.07) H 03/24/21 04:18 Calcium 8.5 mg/dL (8.5-10.3) 03/24/21 04:18 Total Bilirubin 0.4 mg/dL (0.2-1.0) 03/24/21 04:18 Direct Bilirubin 0.1 mg/dL (0.1-0.5) 03/24/21 04:18 AST 19 IU/L (10-42) 03/24/21 04:18 ALT 29 IU/L (10-60) 03/24/21 04:18 Alkaline Phosphatase 44 IU/L (42-121) 03/24/21 04:18 Total Protein 6.9 g/dL (6.7-8.2) 03/24/21 04:18 Albumin 3.5 g/dL (3.2-5.5) 03/24/21 04:18 Globulin 3.4 g/dL (2.1-4.2) 03/24/21 04:18 Albumin/Globulin Ratio 1.0 (1.0-2.2) 03/22/21 14:35 Lipase 22 U/L (22-51) 03/22/21 14:35 Nasal Adenovirus (PCR) NOT DETECTED 03/22/21 14:15 Nasal B. parapertussis DNA (PCR) NOT DETECTED 03/22/21 14:15 Nasal Coronavir 229E PCR NOT DETECTED 03/22/21 14:15 Nasal Coronavir HKU1 PCR NOT DETECTED 03/22/21 14:15 Nasal Coronavir NL63 PCR NOT DETECTED 03/22/21 14:15 Nasal Coronavir OC43 PCR NOT DETECTED 03/22/21 14:15 Nasal Enterovir/Rhinovir PCR NOT DETECTED 03/22/21 14:15 Nasal Influenza B PCR NOT DETECTED 03/22/21 14:15 Nasal Influenza A PCR NOT DETECTED 03/22/21 14:15 Nasal Parainfluen 1 PCR NOT DETECTED 03/22/21 14:15 Nasal Parainfluen 2 PCR NOT DETECTED 03/22/21 14:15 Nasal Parainfluen 3 PCR NOT DETECTED 03/22/21 14:15 Nasal Parainfluen 4 PCR NOT DETECTED 03/22/21 14:15 Nasal RSV (PCR) NOT DETECTED 03/22/21 14:15 Nasal B.pertussis DNA PCR NOT DETECTED 03/22/21 14:15 Nasal C.pneumoniae (PCR) NOT DETECTED 03/22/21 14:15 Jose Human Metapneumo PCR NOT DETECTED 03/22/21 14:15 Nasal M.pneumoniae (PCR) NOT DETECTED 03/22/21 14:15 Nasal SARS-CoV-2 (PCR) DETECTED A 03/22/21 14:15 - Procedures Procedures: Procedures DRAINAGE OF L LOW EXTREM LYMPH, PERC APPROACH, DIAGN (05/24/15) EXCISION OF LEFT LOWER EXTREMITY, PERC APPROACH, DIAGN (05/24/15) ABX Reporting Has patient been on IV antibiotics over the past 48 hours?: Yes Current Medications - Current Medications Current Medications: Active Medications Acetaminophen (Acetaminophen 325 Mg Tablet) 650 mg PO Q4HR PRN PRN Reason: Pain 1 to 4 Last Admin: 03/24/21 07:36 Dose: 650 mg Documented by: Albuterol (Albuterol 1 Puff) 2 puffs INH RTQ4H PRN PRN Reason: Shortness of Air/Wheezing Last Admin: 03/24/21 09:58 Dose: 2 puffs Documented by: Benzonatate (Benzonatate 100 Mg Capsule) 100 mg PO TID PRN PRN Reason: Cough Last Admin: 03/24/21 07:36 Dose: 100 mg Documented by: Buprenorphine HCl (Buprenorphine/Naloxone 8-2 Mg Tab) 1 tab SL TID [facility] Last Admin: 03/24/21 07:36 Dose: 1 tab Documented by: Dexamethasone (Dexamethasone 10 Mg/Ml Vial) 6 mg IVP DAILY [facility] Stop: 04/01/21 08:59 Last Admin: 03/24/21 10:03 Dose: 6 mg Documented by: Enoxaparin Sodium (Enoxaparin 40 Mg/0.4 Ml Syringe) 40 mg SUBQ DAILY [facility] Last Admin: 03/24/21 10:07 Dose: 40 mg Documented by: Guaifenesin (Guaifenesin 100 Mg/5 Ml Udc) 100 mg PO Q6HR PRN PRN Reason: Cough Last Admin: 03/24/21 10:07 Dose: 100 mg Documented by: Ceftriaxone Sodium 1 gm/ (Sodium Chloride) 100 mls @ 200 mls/hr IV DAILY [facility] Stop: 03/26/21 09:29 Last Infusion: 03/24/21 10:44 Dose: Infused Documented by: Remdesivir 100 mg/ Sodium (Chloride) 100 mls @ 200 mls/hr IV DAILY [facility] Stop: 03/26/21 09:29 Last Infusion: 03/24/21 11:41 Dose: Infused Documented by: Insulin Aspart (Insulin Aspart 300 Unit/3 Ml Pen) 1 - 9 unit SUBQ 0800,1200,1700,2100 [facility]; Protocol Last Admin: 03/24/21 11:39 Dose: 1 unit Documented by: Ondansetron HCl (Ondansetron Odt 4 Mg Tablet) 4 mg TL Q6HR PRN PRN Reason: Nausea / Vomiting Ondansetron HCl (Ondansetron 4 Mg/2 Ml Vial) 4 mg IVP Q6HR PRN PRN Reason: Nausea / Vomiting Saccharomyces Boulardii (Saccharomyces Boulardii 250 Mg Capsule) 250 mg PO BIDWM [facility] Last Admin: 03/24/21 10:06 Dose: 250 mg Documented by: Sodium Chloride (Sodium Chloride Flush 0.9% 10 Ml Syringe) 10 ml IVP PRN PRN PRN Reason: NEEDED PER PROVIDER ORDERS Sodium Chloride (Sodium Chloride Flush 0.9% 10 Ml Syringe) 10 ml IVP 0100,0900,1700 [facility] Last Admin: 03/24/21 10:03 Dose: 10 ml Documented by: Buprenorphine HCl/Naloxone HCl [Buprenorphine-Nalox 8-2Mg Film] 3 film SL DAILY 03/23/21
[2021-03-25 06:03] LABS: BASOPHILS % (AUTO) 0.1 %; EOSINOPHILS % (AUTO) 0.1 %; HCT - HEMATOCRIT 44.6 % (42.0-52.0); HGB - HEMOGLOBIN 14.4 g/dL (14.0-18.0); LYMPHOCYTES # (AUTO) 1.6 10^3/uL (1.5-3.5); LYMPHOCYTES % (AUTO) 18.7 %; MEAN CORPUSCULAR HEMOGLOBIN 27.1 pg (27.0-31.0); MEAN CORPUSCULAR HGB CONC 32.3 g/dL (32.0-36.0); MEAN CORPUSCULAR VOLUME 83.8 fL (80.0-94.0); MEAN PLATELET VOLUME 9.8 fL (7.4-11.4); MONOCYTES # (AUTO) 0.5 10^3/uL (0.0-1.0); MONOCYTES % (AUTO) 6.2 %; NEUTROPHILS # (AUTO) 6.3 10^3/uL (1.5-6.6); NEUTROPHILS % (AUTO) 74.2 %; PLT - PLATELET COUNT 266 10^3/uL (130-450); RED BLOOD COUNT 5.32 10^6/uL (4.70-6.10); RED CELL DISTRIBUTION WIDTH 13.1 % (12.0-15.0); WHITE BLOOD COUNT 8.4 x10^3/uL (4.8-10.8)
[2021-03-25] MEDS: BUPRENORPHINE/NALOXONE 8-2 MG TAB SL SCH (06:15)
[2021-03-25 06:18] LABS: ALBUMIN 3.7 g/dL (3.2-5.5); BILIRUBIN,DIRECT 0.1 mg/dL (0.1-0.5); BILIRUBIN,TOTAL 0.4 mg/dL (0.2-1.0); CREATININE 0.6 mg/dL (0.6-1.2); POTASSIUM 4.4 mmol/L (3.5-5.0); TOTAL PROTEIN 6.9 g/dL (6.7-8.2)
[2021-03-25] MEDS: SACCHAROMYCES BOULARDII 250 MG CAPSULE PO SCH (08:25)
[2021-03-25] MEDS: ENOXAPARIN 40 MG/0.4 ML SYRINGE SUBQ SCH (08:25)
[2021-03-25] MEDS: DEXAMETHASONE 10 MG/ML VIAL IVP SCH (08:25)
[2021-03-25] MEDS: cefTRIAXone 1 GM in SODIUM CHLORIDE 0.9% MINIBAG 100 ML IV SCH (08:26)
[2021-03-25] MEDS: INSULIN ASPART 300 UNIT/3 ML PEN SUBQ SCH (08:27)
[2021-03-25] MEDS: SODIUM CHLORIDE FLUSH 0.9% 10 ML SYRINGE IVP SCH (08:29)
[2021-03-25] MEDS: REMDESIVIR 100MG VIAL 100 MG in SODIUM CHLORIDE 0.9% 100ML 100 ML IV SCH (10:27)
--- NOTE | 2021-03-25 10:51 | Discharge Plan ---
Discharge Plan Problem Reviewed?: Yes Disposition: Home, Self Care Condition: Stable Diet: Regular Activity Restrictions: Activity as Tolerated Shower Restrictions: No (fall precaution) Instruction Topics: COVID-19 [facility], COVID-19 [facility] Department Statement Health Concerns: Covid 19 Plan of Treatment: You were positive COVID-19 in the test. After the treatment in the hospital, Your respiratory status is stable, you have no respiratory distress now. You may follow-up with [facility] for COVID-19 infection recommendations. Should your symptoms Including difficulty breathing, having respiratory distress, return or worsen, you may present to ER or call 911 for help. You may resume your home medications. Care Goals: Stabilization and improvement of your medical conditions Assessment: Discussed with you the care plan, you understood Additional Instructions or Follow Up instructions: You may follow-up with your PCP in 1 to 2 weeks, should your symptoms return or worsen, you may present to ER or call 911 for help No Smoking: If you smoke, Please STOP! Call for help.
--- NOTE | 2021-03-25 10:53 | DISCHARGE SUMMARY ---
Discharge Summary Admit Date: 03/22/21 Discharge Date: 03/25/21 Discharging Provider: Clarence Valiente Condition at Discharge: Stable Discharge Disposition: 01 Home, Self Care Discharge Facility Name: home - DIAGNOSES Discharge Diagnoses with Status of Each Condition: (1) Pneumonia due to COVID-19 virus Greatly improved. Patient has no more respiratory distress. Patient had a 94% O2 sats on room air. Patient is hemodynamically stable. Patient may follow-up with [facility] COVID-19 recommendations (2) Chronic back pain Stable, continue home Suboxone - HPI History of Present Illness: refer from Dr. silver's HPI on 03/22/21 This is a 45-year-old male with a past medical history significant for chronic back pain for which he takes Suboxone who presents today with worsening shortness of breath. He states he has felt sick for about 10 days now and was diagnosed with Covid about 1 week ago. He was seen in the emergency department and was discharged home. At that time, his chest x-ray was unremarkable. He states he has had some good days and bad days since then but last night he felt so short of breath that he thought he was going to . This caused him to come in for evaluation today. He states he had a poor appetite with decreased intake over the past few days. He complains of fevers, chills, malaise and a productive cough of clear sputum. He states he has been so sick he has not taken his Suboxone for nearly 1 week now due to his poor appetite. He is not vaccinated. In the emergency department, he was noted to be hypoxic with saturations of 90% on room air. His chest x-ray was now concerning for a developing infiltrate. Given this, medicine was consulted for admission. - ALLERGIES Allergies/Adverse Reactions: Allergies Allergy/AdvReac Type Severity Reaction Status Date / Time No Known Drug Allergies Allergy Verified 03/22/21 14:12 - MEDICATIONS Home Medications: Ambulatory Orders Medication Instructions Recorded Confirmed Albuterol Sulf [Ventolin Hfa 2 - 3 puffs INH Q4HR PRN #1 inhaler 03/15/21 03/22/21 Inhaler] Buprenorphine HCl/Naloxone HCl 3 film SL DAILY 03/23/21 03/23/21 [Buprenorphine-Nalox 8-2Mg Film] - PHYSICAL EXAM AT DISCHARGE General Appearance: positive: No acute distress, Alert. negative: Lethargic Eyes Bilateral: positive: Normal inspection, PERRL, No lid inflammation ENT: positive: ENT inspection nml, Pharynx nml. negative: Purulent nasal drainage Neck: positive: Nml inspection, Trachea midline. negative: Thyromegaly, Tracheal deviation Respiratory: positive: Chest non-tender, No respiratory distress. negative: Wheezes Cardiovascular: positive: Regular rate & rhythm, No murmur. negative: Tachycardia, Bradycardia, Systolic murmur, Diastolic murmur Peripheral Pulses: positive: 2+ Abdomen: positive: Non-tender, Nml bowel sounds, No distention. negative: Tenderness Back: positive: Nml inspection Skin: positive: Color nml, Warm, Dry. negative: Cyanosis Extremities: positive: Non-tender, Full ROM, Nml appearance. negative: Calf tenderness Neurologic/Psychiatric: positive: Oriented x3, Motor nml, Sensation nml. negative: Weakness, Sensory loss, Facial droop, Slurred/abnml speech, Depressed mood/affect - LABS Result Diagrams: 03/25/21 05:53 03/25/21 05:53 - FOLLOW UP Follow Up: You were positive COVID-19 in the test. After the treatment in the hospital, Your respiratory status is stable, you have no respiratory distress now. You may follow-up with [facility] for COVID-19 infection recommendations. Should your symptoms Including difficulty breathing, having r espiratory distress, return or worsen, you may present to ER or call 911 for help. You may resume your home medications. You may follow-up with your PCP in 1 to 2 weeks, should your symptoms return or worsen, you may present to ER or call 911 for help - TIME SPENT Time Spent in Discharge (Minutes): 30
[2021-03-25 11:42] VITALS: BP 130/87
== END 2021-03-25 12:30 | disposition home or self-care (01) | DRG 177 ==
LOC: EDUNIT# → ED 13:42 → MS3 15:55
PROVIDERS: ADMIT Internal Medicine; ATTEND Nurse Practitioner Gerontology
PROC: XW033E5 Introduction of Remdesivir Anti-infective into Peripheral Vein, Percutaneous Approach, New Technology Group 5 (ICD-10-PCS; principal; 2021-03-22)
PROC: 3E0333Z Introduction of Anti-inflammatory into Peripheral Vein, Percutaneous Approach (ICD-10-PCS; 2021-03-22)
DX: U07.1 COVID-19 (principal); J12.82 Pneumonia due to coronavirus disease 2019; R09.02 Hypoxemia; M54.9 Dorsalgia, unspecified; G89.29 Other chronic pain; Z79.891 Long term (current) use of opiate analgesic; Z87.891 Personal history of nicotine dependence
CPT/HCPCS: 0202U; 36415; 71045; 80048; 80053; 80076; 83036; 83690; 85025; 87040; 94640; 94664; 99284; 99285; A9270; C9399; J1650

== ENCOUNTER 2021-04-03 14:40 | Emergency (ER) | payer BC ==
--- NOTE | 2021-04-03 16:00 | ED Physician Documentation ---
History of Present Illness - Stated complaint Stated Complaint: MHE - Chief complaint Chief Complaint: MHE - History obtained from History obtained from: Patient - Additonal information Additional information: 45-year-old gentleman has been out of work for about a month now due to Covid and Covid exposure. He tested positive on March 22. He has been asymptomatic for greater than 10 days now. He has no persistent fevers, chills, body aches, congestion. He is also having a lot of anxiety. No SI or HI. Review of Systems Constitutional: denies: Fever, Chills Nose: reports: Reviewed and negative Throat: reports: Reviewed and negative Cardiac: reports: Reviewed and negative Respiratory: reports: Reviewed and negative PD PAST MEDICAL HISTORY - Past Medical History Cardiovascular: None Respiratory: None Neuro: None Endocrine/Autoimmune: None GI: GERD : None, Kidney stones HEENT: None Psych: Depression, Anxiety, Post traumatic stress disorder Musculoskeletal: None, Chronic back pain Derm: None - Past Surgical History Past Surgical History: Yes Ortho: Other - Present Medications Home Medications: Ambulatory Orders Medication Instructions Recorded Confirmed Albuterol Sulf [Ventolin Hfa 2 - 3 puffs INH Q4HR PRN #1 inhaler 03/15/21 03/22/21 Inhaler] Buprenorphine HCl/Naloxone HCl 3 film SL DAILY 03/23/21 03/23/21 [Buprenorphine-Nalox 8-2Mg Film] LORazepam [Ativan] 1 mg PO TID PRN #12 tablet 04/03/21 - Allergies Allergies/Adverse Reactions: Allergies Allergy/AdvReac Type Severity Reaction Status Date / Time No Known Drug Allergies Allergy Verified 04/03/21 15:20 - Social History Does the pt smoke?: No Smoking Status: Never smoker Does the pt drink ETOH?: No Does the pt have substance abuse?: No - Immunizations Immunizations are current?: Yes Immunizations: Other immun not current - POLST Patient has POLST: No PD ED PE NORMAL - Vitals Vital signs reviewed: Yes - General General: Alert and oriented X 3, No acute distress - Derm Derm: Normal color, Warm and dry - Extremities Extremities: No deformity, No tenderness to palpate, Normal ROM s pain - Neuro Neuro: Alert and oriented X 3, Normal speech - Psych Psych: Normal mood, Normal affect Results - Vitals Vitals: Vital Signs - 24 hr 04/03/21 15:15 Temperature 36.2 C L Heart Rate 99 Respiratory 16 Rate Blood Pressure 171/119 H Oxygen O2 Source Room air PD MEDICAL DECISION MAKING - ED course ED course: He has been asymptomatic for greater than 10 days so according to CDC guidelines he may return to work without restriction. He requested a prescription for some as needed Ativan and this was given to him. He has no SI or HI. I discussed with him that this is not a good long-term treatment for anxiety but he feels like as things go back to normal for him he will only needed temporarily. Departure - Departure Disposition: 01 Home, Self Care Condition: Good Record reviewed to determine appropriate education?: Yes Instructions: ED Stress React Prescriptions: LORazepam [Ativan] 1 mg PO TID PRN #12 tablet PRN Reason: Anxiety Comments: Prescription sent electronically to [facility] in [place]. Call your doctor to arrange a follow-up appointment, make the next available appointment. In the interim, return anytime if worse or if new symptoms develop. Forms: Activity restrictions
[2021-04-03 16:11] VITALS: BP 137/97
== END 2021-04-03 16:10 | disposition home or self-care (01) ==
LOC: ED 14:40
DX: F41.9 Anxiety disorder, unspecified (principal); U07.1 COVID-19
CPT/HCPCS: 99282; 99283

== ENCOUNTER 2023-06-23 10:19 | Emergency (ER) | payer BC ==
[2023-06-23 10:56] VITALS: BP 158/109; O2SAT 98
--- NOTE | 2023-06-23 11:39 | ED Physician Documentation ---
History of Present Illness - Stated complaint Stated Complaint: MED REFILL - Chief complaint Chief Complaint: General - Additonal information Additional information: This is a 47-year-old male who presents requesting refill of Suboxone. The patient has been on Suboxone 8 mg twice a day for the past 3 to 4 years. He was on long-term opiates before that due to an injury he sustained in [place]. He wanted to come off opiates as he has been maintained on long-term Suboxone therapy since then. He was going to [facility] for his Suboxone however they closed their doors recently and he has not been able to establish a new Suboxone provider yet. He had been out of town for the holidays and just returned to find that they were no longer open. He plans to go to a facility in [place] on Saturday or Saturday of this week as a walk-in to try to establish care. He states he has been out of his medication for about 3 days and starting to feel withdrawal symptoms and discomfort. He denies any other concerns today. Review of Systems Constitutional: reports: Reviewed and negative Cardiac: reports: Reviewed and negative Respiratory: reports: Reviewed and negative GI: reports: Reviewed and negative : reports: Reviewed and negative Musculoskeletal: reports: Other (Low back pain, chronic) PD PAST MEDICAL HISTORY - Past Medical History Past Medical History: Yes Cardiovascular: None Respiratory: None Neuro: None Endocrine/Autoimmune: None GI: GERD : None, Kidney stones HEENT: None Psych: Depression, Anxiety, Post traumatic stress disorder Musculoskeletal: Chronic back pain Derm: None - Past Surgical History Past Surgical History: Yes Ortho: Spine surgery, Other - Present Medications Home Medications: Ambulatory Orders Medication Instructions Recorded Confirmed Buprenorphine HCl/Naloxone HCl 3 film SL DAILY 03/23/21 06/23/23 [Buprenorphine-Nalox 8-2Mg Film] Buprenorphine HCl/Naloxone HCl 1 each SL BID PRN #10 film 06/23/23 [Suboxone 8 mg-2 mg Sl Film] - Allergies Allergies/Adverse Reactions: Allergies Allergy/AdvReac Type Severity Reaction Status Date / Time No Known Drug Allergies Allergy Verified 06/23/23 10:49 - Social History Does the pt smoke?: No Smoking Status: Never smoker Does the pt drink ETOH?: No Does the pt have substance abuse?: No - Immunizations Immunizations are current?: Yes Immunizations: Other immun not current - POLST Patient has POLST: No PD ED PE NORMAL - Vitals Vital signs reviewed: Yes - General General: Alert and oriented X 3, No acute distress, Well developed/nourished - HEENT HEENT: Atraumatic, Moist mucous membranes - Back Back: No CVA TTP, No spinal TTP - Derm Derm: Normal color, Warm and dry, No rash Results - Vitals Vitals: Vital Signs - 24 hr 06/23/23 10:51 Temperature 36.3 C L Heart Rate 107 H Respiratory 18 Rate Blood Pressure 158/109 H O2 Saturation 98 Oxygen O2 Source Room air PD Medical Decision Making - ED course Complexity details: d/w patient ED course: 47-year-old male presenting requesting refill of his Suboxone. He has been on this long-term for chronic pain management and unfortunately His clinic has closed their doors. Patient is experiencing mild withdrawal symptoms and has been out of of medication for several days. He is stable appearing here however and I do think it is appropriate to give him a short course of Suboxone to continue his therapy until he can get into see a pain management provider. He has plans to go as soon as he can on Saturday or Saturday to [place] to establish a new provider. He understands that we cannot continue to refill from the ER but I will give him this one-time refill until he can establish a new provider. Patient very thankful, and discharged home in stable condition. 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 I am giving you a short-term refill but unfortunately we cannot continue to do refills in the ER. I am prescribing a short course of narcotic pain medication for you. These are potentially dangerous and addictive medications that should be used carefully. These medications may constipate you. Take an nhom-ycz-dgyavoh stool softener (docusate) twice daily with plenty of water while taking these medications. If you go 24 hours without a bowel movement, take [id number] miralax, per package instructions. Do not drink or drive while taking these medications. If you received narcotic or sedating medications while in the emergency department, do not drive for 24 hours. Store this medication in a safe, secure place and out of reach of children. It is a violation of federal law to give or sell this medication to another person or to use in a manner other than prescribed. The ED will not refill narcotic prescriptions, including prescriptions lost or stolen. To dispose of unwanted medications: 1. [facility] provides a drop box for medication in pill form only (no liquids) 8:00 am to 4:30 p.m. Saturday-Saturday in the lobby of the [facility], [address] [place] [address]. Empty pills into ziplock bag before disposal. Call [phone] for information. 2.[employer] is a free service available to all [facility] residents. Go to [email or web address] Note that many narcotic pain relievers also contain Tylenol/acetaminophen. Please ensure that your total dose of acetaminophen from all sources does not exceed 3 g (3000 mg) per day. Forms: PCP List Discharge Date/Time: 06/23/23 11:40
== END 2023-06-23 11:40 | disposition home or self-care (01) ==
LOC: ED 10:19
DX: G89.29 Other chronic pain (principal); M54.50 Low back pain, unspecified
CPT/HCPCS: 99282; 99283